=== PATIENT | male | born 1955 | race Caucasian/White ===

== ENCOUNTER 2017-02-24 10:31 | Emergency (ER) | payer OTHER ==
[2017-02-24 10:37] VITALS: BP 137/95
[2017-02-24] MEDS ORDERED: Lidocaine 2% PF * 5 ML VIAL INJ ONE (10:54)
--- NOTE | 2017-02-24 11:35 | UC ---
Laceration HPI - HPI Summary HPI Summary: [employer], WAS TRIMMING BRUSH WHEN BATTERY POWERED CHAINSAW BRUSHED LEFT LEG. LAST TETANUS THREE YEARS AGO. 2CM LACERATION TO POSTERIOR LEFT LEG. - History Of Current Complaint Chief Complaint: UCLaceration Stated Complaint: LEG LACERATION Time Seen by Provider: 02/24/17 10:44 Hx Obtained From: Patient Laceration Location: Calf - LEFT Mechanism Of Injury: Sharp Trauma Onset/Duration: Sudden Onset, Lasting Hours, Still Present Severity: Mild - Allergies/Home Medications Allergies/Adverse Reactions: Allergies Allergy/AdvReac Type Severity Reaction Status Date / Time No Known Allergies Allergy Verified 08/05/14 18:17 PMH/Surg Hx/FS Hx/Imm Hx Previously Healthy: Yes - Surgical History Surgical History: None - Family History Known Family History: Negative: Blood Disorder - Social History Occupation: Employed Full-time Lives: With Family Alcohol Use: Daily Substance Use Type: None Smoking Status (MU): Never Smoked Tobacco Review of Systems Constitutional: Negative Skin: Other - LACERATION LEFT LEG Eyes: Negative ENT: Negative Respiratory: Negative Cardiovascular: Negative Gastrointestinal: Negative Genitourinary: Negative Motor: Negative Neurovascular: Negative Musculoskeletal: Negative Neurological: Negative Psychological: Negative All Other Systems Reviewed And Are Negative: Yes Physical Exam Triage Information Reviewed: Yes Appearance: Well-Appearing, No Pain Distress, Well-Nourished Vital Signs: Initial Vital Signs Temp 98.3 F 02/24/17 10:34 Pulse 82 02/24/17 10:34 Resp 18 02/24/17 10:34 BP 137/95 02/24/17 10:34 Pulse Ox 100 02/24/17 10:34 Vital Signs Reviewed: Yes Eye Exam: Normal ENT Exam: Normal ENT: Positive: Normal ENT inspection, Hearing grossly normal, TMs normal Dental Exam: Normal Neck exam: Normal Respiratory Exam: Normal Respiratory: Positive: Chest non-tender, Lungs clear, Normal breath sounds, No respiratory distress Cardiovascular Exam: Normal Cardiovascular: Positive: RRR, No Murmur, Pulses Normal Abdominal Exam: Normal Musculoskeletal Exam: Normal Musculoskeletal: Positive: Strength Intact, ROM Intact Neurological Exam: Normal Psychological Exam: Normal Skin: Positive: Other - LACERATION LEFT CALF Laceration Repair - Laceration Repair 1 Description: Linear - 2 CM LEFT LEFT Modified For Repair: Yes Type Injection: Local Anesthesia Used: 2.0% Lido Cleansing Completed Via Routine Prep: Yes Irrigation With Pressure Irrigation Device: Yes Closure Material: Sutures - 3 X 4-0 PROLENE Suture Of: Skin, SQ Suture Type: Prolene Laceration Course/Dx - Differential Dx - Laceration/Wound Differental Diagnoses: Laceration Provider Diagnoses: LACERATION LEFT LEG Discharge - Discharge Plan Condition: Stable Disposition: HOME Patient Education Materials: Laceration (ED) Referrals: Allison Oakes MD [Primary Care Provider] - Additional Instructions: PLEASE HAVE SUTURES REMOVED IN TEN DAYS
== END 2017-02-24 11:35 | disposition home or self-care (01) ==
LOC: UCEAST 10:31
DX: S81.812A Laceration without foreign body, left lower leg, initial encounter (principal); W29.3XXA Contact with powered garden and outdoor hand tools and machinery, initial encounter; Y93.89 Activity, other specified; Y92.9 Unspecified place or not applicable; Y99.9 Unspecified external cause status
CPT/HCPCS: 12002; 12031; 99211; G0463

== ENCOUNTER 2017-03-06 11:48 | Emergency (ER) | payer OTHER ==
--- NOTE | 2017-03-06 12:24 | UC ---
HPI Wound/Suture Re-check - HPI Summary HPI Summary: 61 YEAR OLD PRESENTS WITH COMPLAINS OF LEFT LOWER LEG SUTURE REMOVAL - History Of Current Complaint Stated Complaint: SUTURE REMOVAL Time Seen by Provider: 03/06/17 12:22 Hx Obtained From: Patient Onset/Duration: Sudden Onset Severity: Mild Procedure Type: SUTURE REMOVAL - Allergies/Home Medications Allergies/Adverse Reactions: Allergies Allergy/AdvReac Type Severity Reaction Status Date / Time No Known Allergies Allergy Verified 03/06/17 12:38 PMH/Surg Hx/FS Hx/Imm Hx Previously Healthy: Yes - Surgical History Surgical History: None - Family History Known Family History: Negative: Blood Disorder - Social History Alcohol Use: Daily Substance Use Type: None Smoking Status (MU): Never Smoked Tobacco Review of Systems Constitutional: Negative Skin: Other - LEFT LOWER CALF SUTURE REMOVAL Eyes: Negative ENT: Negative Respiratory: Negative Cardiovascular: Negative Gastrointestinal: Negative Genitourinary: Negative Motor: Negative Neurovascular: Negative Musculoskeletal: Negative Neurological: Negative Psychological: Negative All Other Systems Reviewed And Are Negative: Yes Physical Exam Triage Information Reviewed: Yes Appearance: Well-Appearing Vital Signs Reviewed: Yes Eye Exam: Normal Eyes: Positive: Conjunctiva Clear ENT: Positive: Normal ENT inspection Dental Exam: Normal Neck exam: Normal Neck: Positive: Supple Respiratory Exam: Normal Cardiovascular Exam: Normal Skin Exam: Other - LEFT LOWER EXTREMITY STITCHES REMOVAL # 3, WOUND C//D/I, SLIGHT OOZING OF BLOOD Course/Dx - Course Course Of Treatment: LEFT LOWER CALF SUTURE REMOVAL - Differential Dx - Laceration/Wound Provider Diagnoses: LEFT CALF WOUND SUTURE REMOVAL # 3 Discharge - Discharge Plan Condition: Stable Disposition: HOME Prescriptions: Cephalexin CAP* [Keflex 500 CAP*] 500 mg PO TID #30 cap Patient Education Materials: Wound Infection (ED) Referrals: Allison Oakes MD [Primary Care Provider] - If Needed
[2017-03-06 12:45] VITALS: BP 120/87
== END 2017-03-06 13:24 | disposition home or self-care (01) ==
LOC: UCEAST 11:48
DX: Z48.02 Encounter for removal of sutures (principal)
CPT/HCPCS: 99212; G0463

== ENCOUNTER 2017-03-23 09:11 | Emergency (ER) | payer OTHER ==
[2017-03-23 09:38] VITALS: BP 126/95
--- NOTE | 2017-03-23 09:53 | UC ---
Skin Complaint HPI - HPI Summary HPI Summary: 61 y/o male presents to the urgent care for f/u in his left leg laceration. Pt reports the laceration was sutured here in 02/24/2017 and then removed in 2016, but he thinks is now infected since is red, swollen w/ yellowish discharge. Pt has denies fever, SOB, chest pain, N/V/D. Pt is concern since he is goidg out the country tomorrow for a business trip. Pt has not other complains. - History of Current Complaint Chief Complaint: UCSkin Time Seen by Provider: 03/23/17 09:32 Stated Complaint: SKIN Hx Obtained From: Patient Onset/Duration: Gradual Onset, Lasting Weeks, Still Present Skin Exposure Onset/Duration: Weeks Ago Timing: Constant Onset Severity: Mild Current Severity: Moderate Pain Intensity: 2 Pain Scale Used: 0-10 Numeric Location: Other - Left dorsal side of lower leg Character: Swelling, Pain, Redness, Raised Aggravating: Nothing Alleviating: Cold Associated Signs & Symptoms: Positive: Negative. Negative: Nausea, Vomiting, Numbness, Fever, Red Streaks Related History: Other: - Laceration - Allergy/Home Medications Allergies/Adverse Reactions: Allergies Allergy/AdvReac Type Severity Reaction Status Date / Time No Known Allergies Allergy Verified 03/23/17 09:27 Review of Systems Constitutional: Negative Skin: Rash - Wound lesion with redness in the back of lower leg s/p laceration Eyes: Negative ENT: Negative Respiratory: Negative Cardiovascular: Negative Gastrointestinal: Negative Genitourinary: Negative Motor: Negative Neurovascular: Negative Musculoskeletal: Negative Neurological: Negative Psychological: Negative All Other Systems Reviewed And Are Negative: Yes PMH/Surg Hx/FS Hx/Imm Hx Previously Healthy: Yes Cardiovascular History: Hypertension - Surgical History Surgical History: None - Family History Known Family History: Positive: None Negative: Blood Disorder - Social History Occupation: Employed Full-time Lives: With Family Alcohol Use: Daily Substance Use Type: None Smoking Status (MU): Never Smoked Tobacco - Immunization History Most Recent Influenza Vaccination: 2016 Most Recent Tetanus Shot: up to date Physical Exam Triage Information Reviewed: Yes Appearance: Well-Appearing, No Pain Distress, Well-Nourished, Thin Vital Signs: Initial Vital Signs Temp 97.8 F 03/23/17 09:25 Pulse 92 03/23/17 09:25 Resp 18 03/23/17 09:25 BP 126/95 03/23/17 09:25 Pulse Ox 98 03/23/17 09:25 Vital Signs Reviewed: Yes Eye Exam: Normal Eyes: Positive: Conjunctiva Clear - PERRLA, EOMI, fundi grossly normal ENT Exam: Normal ENT: Positive: Normal ENT inspection, Hearing grossly normal, Pharynx normal, TMs normal Dental Exam: Normal Neck exam: Normal Neck: Positive: Supple, Nontender, No Lymphadenopathy Respiratory Exam: Normal Respiratory: Positive: Chest non-tender, Lungs clear, Normal breath sounds Cardiovascular Exam: Normal Cardiovascular: Positive: RRR, No Murmur, Pulses Normal Abdominal Exam: Normal Abdomen Description: Positive: Nontender, No Organomegaly, Soft Bowel Sounds: Positive: Present Musculoskeletal Exam: Normal Musculoskeletal: Positive: Strength Intact, ROM Intact, No Edema Neurological Exam: Normal Psychological Exam: Normal Skin: Positive: significant lesion(s) - Left calf with erythematous linear closed laceration with mild crusting and purulent discharge. warm to touch, and mildly swollen. FROM, positive sensation, capillary refill and pulses intact. Course/Dx - Course Course Of Treatment: 61 y/o male presents to the urgent care for f/u in his left leg laceration. Pt reports the laceration was sutured here in 02/24/2017 and then removed in 03/06/2017, but he thinks is now infected since is red, swollen w/ yellowish discharge. Pt has denies fever, SOB, chest pain, N/V/D. Pt is concern since he is goidg out the country tomorrow for a business trip. Hx obtained. PE abnormal findings: Left calf with erythematous linear closed laceration with mild crusting and purulent discharge. warm to touch, and mildly swollen. FROM, positive sensation, capillary refill and pulses intact. Pt wound demarcated with a skin marker . Pt Rx Bactrim and Bacitracin topical cream and advised if symptoms do not improve or worsen and fever develops and redness increases despite ABX to go immediately to the ER for further treatment. Pt undestood and agreed and left the clinic ambulating. Uncontrolled HTN: Pt advised to decrease salt intake in diet and monitor BP and f/u with his PCP for further evaluation and treatment. Pt understood and agreed - Differential Diagnoses - Skin Complaint Differential Diagnoses: Allergic Reaction, Cellulitis, Eczema, Urticaria - Diagnoses Provider Diagnoses: 1- Cellulitis s/p wound laceration suture. 2- Uncontrolled HTN Discharge - Discharge Plan Condition: Stable Disposition: HOME Prescriptions: Bacitracin OINTMENT* 1 applic TOPICAL BID #1 tube Sulfamethox/Trimethoprim DS* [Bactrim DS 800/160 TAB*] 1 tab PO BID #10 tab Patient Education Materials: Cellulitis (ED), Acute Wound Care (ED), Low Sodium Diet (ED) Referrals: Allison Oakes MD [Primary Care Provider] - 1 Week Additional Instructions: Please take medications as instructed and finish the full course of treatment to avoid recurrent infection. Keep wound clean and dry, if signs of infection develops despite antibiotics please go immediately to the ER. Decrease salt in your diet and exercise, monitor your BP and follow up with your PCP for further evaluation and treatment on your HTN.
== END 2017-03-23 10:03 | disposition home or self-care (01) ==
LOC: UCEAST 09:11
DX: L03.116 Cellulitis of left lower limb (principal); I10 Essential (primary) hypertension
CPT/HCPCS: 99212; G0463

== ENCOUNTER 2017-04-17 16:12 | Emergency (ER) | payer OTHER ==
[2017-04-17 16:31] VITALS: BP 145/88
--- NOTE | 2017-04-17 16:43 | UC ---
Ear Complaint HPI - HPI Summary HPI Summary: 61 YEAR OLD MALE PRESENTS WITH COMPLAINS OF RIGHT EAR PAIN AFTER A TRANSCONTINENTAL FLIGHT. - History of Current Complaint Chief Complaint: UCEar Stated Complaint: EAR PAIN Time Seen by Provider: 04/17/17 16:23 - Allergies/Home Medications Allergies/Adverse Reactions: Allergies Allergy/AdvReac Type Severity Reaction Status Date / Time No Known Allergies Allergy Verified 04/17/17 16:31 PMH/Surg Hx/FS Hx/Imm Hx Previously Healthy: Yes - Surgical History Surgical History: None - Family History Known Family History: Positive: None Negative: Blood Disorder - Social History Alcohol Use: Daily Substance Use Type: None Smoking Status (MU): Never Smoked Tobacco - Immunization History Most Recent Influenza Vaccination: 2015 Most Recent Tetanus Shot: up to date Review of Systems Constitutional: Negative Skin: Negative Eyes: Negative ENT: Ear Ache Respiratory: Negative Cardiovascular: Negative Gastrointestinal: Negative Genitourinary: Negative Motor: Negative Neurovascular: Negative Musculoskeletal: Negative Neurological: Negative Psychological: Negative All Other Systems Reviewed And Are Negative: Yes Physical Exam Triage Information Reviewed: Yes Vital Signs: Initial Vital Signs Temp 36.1 C 04/17/17 16:28 Pulse 74 04/17/17 16:28 Resp 18 04/17/17 16:28 BP 145/88 04/17/17 16:28 Pulse Ox 100 04/17/17 16:28 Eye Exam: Normal ENT Exam: Normal ENT: Positive: Other: - MODERATE RIGHT MIDDLE EAR FLUID Dental Exam: Normal Neck exam: Normal Neck: Positive: 1 Respiratory Exam: Normal Cardiovascular Exam: Normal Abdominal Exam: Normal Musculoskeletal Exam: Normal Neurological Exam: Normal Psychological Exam: Normal Skin Exam: Normal Ear Complaint Course/Dx - Differential Dx/Diagnosis Provider Diagnoses: MODERATE RIGHT MIDDLE EAR FLUID Discharge - Discharge Plan Condition: Stable Disposition: HOME Prescriptions: Methylprednisolone [Medrol Dosepak 4 MG*] 4 mg PO .SEE BRADEN INSTRUCTION #21 tab Neomyc/Polym/HC 1% OTIC SUSP* [Cortisporin Otic Susp 1%*] 4 drop RIGHT EAR QID # 1 btl Pseudoephedrine HCl [Sudafed Nasal Decongestan] 30 mg PO Q8H PRN #30 tab PRN Reason: Congestion Patient Education Materials: Earache (ED) Referrals: Allison Oakes MD [Primary Care Provider] -
== END 2017-04-17 16:54 | disposition home or self-care (01) ==
LOC: UCEAST 16:12
DX: H93.8X1 Other specified disorders of right ear (principal); H92.01 Otalgia, right ear
CPT/HCPCS: 99212; G0463

== ENCOUNTER 2019-07-15 20:21 | Emergency (ER) | payer OTHER ==
--- OUTSIDE RECORDS SUMMARY | 2019-07-15 20:26 | XMS REPORT | Continuity of Care Document ---
:1955 External Reference #:[id number] Author Name Nurse Visit cc (transmitted by agent of provider Amanda Maloney) Address [address] [address] Care Team Providers Name Role Phone Emmanuel Cunningham MD - Neurology Care Team Information College President [phone] Walt Umaña MD - Advertising Assistant Manager Care Team Information College President [phone] Kvng Del Toro MD - Care Team Information College President [phone] Otolaryngology Isaiah Sarah MD - Cardiovascular Care Team Information College President [phone] Federica Oakes MD - Family Care Team Information College President [phone] Medicine Problems Active Problems Provider Date Atrial fibrillation Kyle Rucker, Onset: 08/23/2007 Ravindra,FACP Pure hypercholesterolemia Kyle Rucker, Onset: 08/23/2007 Ravindra,FACP Allergic asthma without status Kyle Rucker, Onset: 08/23/2007 asthmaticus Ravidnra,FACP Allergy Kyle Rucker, Onset: 08/23/2007 Ravindra,FACP Gastroesophageal reflux disease Kyle Rucker, Onset: 08/23/2007 Ravindra,KIRBYP Chronic peptic ulcer with hemorrhage AND Kyle Rucker, Onset: 10/16/2008 with perforation but without obstruction Ravindra,FACP Mixed hyperlipidemia Kyle Rucker, Onset: 09/10/2009 Ravindra,FACP Benign essential hypertension Kyle Rucker, Onset: 12/27/2010 ANALI Waite Gout Kyle Rucker, Onset: 12/27/2010 ANALI Waite Essential hypertension SEBASTIEN Lopes Onset: 06/28/2015 Social History Type Date Description Comments Sex Unknown Tobacco Use Start: Unknown Former Cigarette Smoker Pt denies smoking End: Unknown pipe, cigar, e-cigarettes, or using chewing tobacco. ETOH Use Consumes 1 glass of wine per day Tobacco Use Start: Unknown Patient is a former End: Unknown smoker Recreational Drug Use Denies Drug Use Smoking Status Reviewed: 03/22/19 Patient is a former smoker Exercise Type/Frequency Exercises sporadically uses elliptical machine, and weight machine for about 40 minutes per workout, about 2 x per week Allergies, Adverse Reactions, Alerts Active Allergies Reaction Severity Comments Date NKDA 06/30/2005 Animal Dander 03/22/2019 Dust 03/22/2019 Pollen 03/22/2019 Mildew 03/22/2019 Medications Active Medications SIG Qnty Indications Ordering Provider Date Lisinopril 1 by mouth every 30tabs I10 Dana Moseley NP 05/20/2019 30mg Tablets day Wixela Inhub Inhale 1 puff By Unknown 03/18/2019 Mouth Twice 250-50mcg/Dose Daily Aerosol Aspirin Low Strength take 1 tablet by 90units I48.0 Dana Moseley NP mouth daily 81mg Chewtabs Nebulizer twice daily as Isaiah Riley 10/26/2018 needed Ravindra Sarah Rosuvastatin Calcium take 1 tablet by 90tabs E78.00 Isaiah Riley 10/26/2018 mouth every Ravindra Sarah 10mg Tablets evening Metoprolol Tartrate 1 po qd Isaiah Riley 09/17/2014 Ravindra Sarah 50mg Tablets Cartia XT Take One Capsule 30caps Kyle Barker 04/12/2011 120mg Caps ER By Mouth One Ravindra Rucker,FACP 24HR Time Daily Lansoprazole Take One Capsule 30caps Kyle Barker 02/26/2011 30mg By Mouth Daily Ravindra Rucker,FACP Capsules DR Allopurinol 1 po qd 30tabs 274.9 Kyle Barker 01/23/2010 300mg Ravindra Rucker,FACP Tablets Proventil HFA 2 puffs po qid 1Mon Kyle Barker 10/16/2008 prn Ravindra Rucker,FACP 108mcg/Act Aerosol Krill Oil once daily Unknown 1000mg Capsules Zyrtec Allergy take one tablet Unknown 10mg by mouth in the Capsules evening (in Spring/fall) History Medications Advair Diskus 1 puff twice a 60units Dana Moseley, 12/24/2018 - 250-50mcg/Dose day as needed [employer] 05/19/2019 Aerosol Immunizations CPT Code Status Date Vaccine Lot # [id number] Given 08/02/2010 Influenza Virus 3Yrs & Over 13709 Given 09/10/2009 Influenza Virus 3Yrs & Over [id number] 96402 Given 07/27/2009 Influenza Virus Vaccine, Pandemic Formulation [id number] 84686 Given 07/27/2009 Administration Swine Flu Shot 91399 Given 08/02/2008 Influenza Virus 3Yrs & Over [id number] 27395 Given 02/25/2008 Hepatitis A Vaccine Adult Dosage [id number] 06766 Given 08/23/2007 Influenza Virus 3Yrs & Over 64176 Given 08/23/2007 Influenza Virus 3Yrs & Over Vital Signs Date Vital Result Comment 06/06/2019 8:45am Height 62 inches 5'2" Weight 146.25 lb Heart Rate 82 /min right radial regular BP Systolic Sitting 140 mmHg ule reg cuff BP Diastolic Sitting 86 mmHg ule reg cuff BP Systolic Standing 136 mmHg ule reg cuff BP Diastolic Standing 84 mmHg ule reg cuff BMI (Body Mass Index) 26.7 kg/m2 05/20/2019 10:28am Height 62 inches 5'2" Heart Rate 77 /min radial, irregular BP Systolic Sitting 138 mmHg Ra, reg cuff BP Diastolic Sitting 82 mmHg Ra, reg cuff BP Systolic Standing 142 mmHg LA sitting, reg cuff BP Diastolic Standing 82 mmHg LA sitting, reg cuff BP Systolic Lying Down 140 mmHg Ra sitting, home cuff BP Diastolic Lying Down 98 mmHg Ra sitting, home cuff BP Systolic Recheck 150 mmHg LA sitting, home cuff BP Diastolic Recheck 81 mmHg LA sitting, home cuff Results Test Date Facility Test Result H/L Range Note CBC Auto 12/15/2018 [facility] White Blood 5.0 10^3/uL Normal 3.5-10.[address] [place] [address] [phone] Red Blood Count 5.25 10^6/uL Normal 4.18-5.48 Hemoglobin 16.1 g/dL Normal 14.0-18.0 Hematocrit 48 % High 36-46 Mean Corpuscular Volume 91 fL Normal 80-94 Mean Corpuscular Hemoglobin 31 pg Normal 27-31 Mean Corpuscular HGB Conc 34 g/dL Normal 31-36 Red Cell Distribution Width 14 % Normal 10.5-15 Platelet Count 177 10^3/uL Normal 150-450 Mean Platelet Volume 8.7 fL Normal 7.4-10.4 Abs Neutrophils 2.8 10^3/uL Normal 1.5-7.7 Abs Lymphocytes 1.4 10^3/uL Normal 1.0-4.8 Abs Monocytes 0.4 10^3/uL Normal 0-0.8 Abs Eosinophils 0.4 10^3/uL Normal 0-0.6 Abs Basophils 0 10^3/uL Normal 0-0.2 Abs Nucleated RBC 0 10^3/uL Granulocyte % 56.6 % Lymphocyte % 27.2 % Monocyte % 7.5 % Eosinophil % 8.1 % Basophil % 0.6 % Nucleated Red Blood Cells % 0.1 Laboratory test 12/15/2018 [facility] B-Type 136 pg/mL High <= 100 [address] [place] [address] Peptide BNP [phone] Lipid Panel - 12/15/2018 [facility] Creatine 134 U/L Normal 10 -223 [address] Kinase(CK) [place], [place] [id number] [phone] Comp Metabolic 12/15/2018 [facility] Sodium 140 Normal 135- [address] mmol/[place] [address] [phone] Potassium 4.3 mmol/L Normal 3.5-5.0 Chloride 104 mmol/L Normal 101-111 Co2 Carbon Dioxide 33 mmol/L High 22-32 Anion Gap 3 mmol/L Normal 2-11 Glucose 97 mg/dL Normal 70-100 Blood Urea Nitrogen 20 mg/dL Normal 6-24 Creatinine 1.05 mg/dL Normal 0.67-1.17 BUN/Creatinine Ratio 19.0 Normal 8-20 Calcium 9.3 mg/dL Normal 8.6-10.3 Total Protein 6.7 g/dL Normal 6.4-8.9 Albumin 4.4 g/dL Normal 3.2-5.2 Globulin 2.3 g/dL Normal 2-4 Albumin/Globulin Ratio 1.9 Normal 1-3 Total Bilirubin 0.60 mg/dL Normal 0.2-1.0 Alkaline Phosphatase 69 U/L Normal 34-104 Alt 32 U/L Normal 7-52 Ast 31 U/L Normal 13-39 Egfr Non- 70.9 >60 Egfr 85.8 >60 3 Lipid Profile 12/15/2018 [facility] Triglycerides 111 mg/dL 4 (Trig/Chol/HDL) [address] [place] [address] [phone] Cholesterol 140 mg/dL 5 HDL Cholesterol 46.7 mg/dL 6 LDL Cholesterol 71 mg/dL 7 Laboratory test 12/15/2018 [facility] Hemoglobin A1c 5.6 % Normal 4.0-5.6 [address] (Glyco HGB) [place] [address] [phone] 1 FASTING in 1 m Copy Result to: FEDERICA OAKES ([id number]) 2 FASTING in 1 m Copy Result to: [place] O[place]ES ([id number]) 3 Because ethnic data is not always readily available, this report includes an eGFR for both -Americans and non- Americans. The National Kidney Disease Education Program (NKDEP) does not endorse the use of the MDRD equation for patients that are not between the ages of 18 and 70, are , have extremes of body size, muscle mass, or nutritional status, or are non- or non-. According to the National Kidney Foundation, irrespective of diagnosis, the stage of the disease is based on the level of kidney function: Stage Description GFR(mL/min/1.73 m(2)) 1 Kidney damage with normal or decreased GFR 90 2 Kidney damage with mild decrease in GFR 60-89 3 Moderate decrease in GFR 30-59 4 Severe decrease in GFR 15-29 5 Kidney failure <15 (or dialysis) 4 Desirable: <150 Borderline High: 150-199 High: 200-499 Very High: >500 5 Desirable: <200 Borderline High: 200-239 High: >239 6 Low: <40 Desirable: 40-60 High: >60 7 Desirable: <100 Near Optimal: 100-129 Borderline High: 130-159 High: 160-189 Very High: >189 8 Therapeutic target for the treatment of diabetes mellitus patients is <7% HBA1C, and in selective patients <6.0%. Please refer to [place] [employer] diabetic care guidelines for further information. Procedures Date Code Description Status 03/24/2019 91232 Holter Monitor Review (24 hr)dr review & interp only Completed 03/17/2019 01786893 Colonoscopy Completed 03/14/2019 41428 ECG Monitor/Recording W/Visual Superimposition Scanning Completed 02/17/2019 27127 EKG Tracing & Interpretation Completed 02/09/2019 38915 ECHO Stress Test Incl Perf Contiuous ekg Monitoring Completed W/Phys Superv 12/25/2008 37228838 Colonoscopy Completed Medical Devices Description No Information Available Encounters Type Date Location Provider Dx Diagnosis Office Visit 05/20/2019 [facility] Nurse Visit I10 Essential ( primary) 10:00a hypertension [facility], I48.0 Paroxysmal atrial 2:00p [facility] [employer] fibrillation I10 Essential (primary) hypertension E78.5 Hyperlipidemia, unspecified [facility] Essential (primary[facility] [employer] hypertension I48.0 Paroxysmal atrial fibrillation E78.5 Hyperlipidemia, unspecified Office Visit 12/24/2018 1:[facility]p [facility], I10 Essential (primary) [facility] [employer] hypertension I48.2 Chronic atrial fibrillation R06.00 Dyspnea, unspecified Assessments Date Code Description Provider 06/06/2019 I10 Essential (primary) hypertension Nurse Visit 05/20/2019 I10 Essential (primary) hypertension Nurse Visit 03/24/2019 I48.2 Chronic atrial fibrillation Isaiah Sarah M.D. 03/22/2019 I48.0 Paroxysmal atrial fibrillation Dana Thwilmer, [employer] 03/22/2019 I10 Essential (primary) hypertension Dana Moseley, CHANO 03/22/2019 E78.5 Hyperlipidemia, unspecified Dana Moseley, [employer] 03/14/2019 I48.2 Chronic atrial fibrillation Nurse Visit 03/14/2019 I49.3 Ventricular premature depolarization Nurse Visit IC 03/14/2019 I48.91 Unspecified atrial fibrillation Nurse Visit IC 02/17/2019 I48.0 Paroxysmal atrial fibrillation Isaiah Sarah M.D. 02/17/2019 I10 Essential (primary) hypertension Dana Thuman, [employer] 02/17/2019 I48.0 Paroxysmal atrial fibrillation Dana Thuman, [employer] 02/17/2019 E78.5 Hyperlipidemia, unspecified Dana Thuman, [employer] 02/09/2019 I10 Essential (primary) hypertension Isaiah Sarah M.D. 02/09/2019 I48.2 Chronic atrial fibrillation Isaiah Sarah M.D. 02/09/2019 R06.00 Dyspnea, unspecified Isaiah Sarah M.D. 12/24/2018 I10 Essential (primary) hypertension Dana Thuman, [employer] 12/24/2018 I48.2 Chronic atrial fibrillation Dana Thuman, [employer] 12/24/2018 R06.00 Dyspnea, unspecified Dana Moseley, [employer] Plan of Treatment Future Appointment(s):08/10/2019 11:00 am - Isaiah Sarah M.D. at [facility]06/06/2019 - Nurse Visit ccI10 Essential (primary) hypertension Functional Status Description No Information Available Mental Status Description No Information Available Referrals Description No Information Available
--- OUTSIDE RECORDS SUMMARY | 2019-07-15 20:26 | XMS REPORT | Continuity of Care Document ---
:1955 External Reference #:[id number] Author Name Shraddha Hubbard MD Address [address] [place] [address] Problems Active Problems Provider Date Tubular adenoma of colon Onset: 03/18/2019 Chronic kidney disease Onset: 01/09/2018 Essential hypertension Onset: 12/04/2015 Metabolic syndrome X Onset: 06/12/2015 Social History Type Date Description Comments Sex Unknown Allergies, Adverse Reactions, Alerts Description No Information Available Medications Active Medications SIG Qnty Indications Ordering Date Provider Furosemide 1 every day by 30tabs I10 Shraddha Hbubard, 06/10/2019 20mg Tablets mouth Lisinopril 1 daily Oral Unknown 02/17/2019 20mg Tablets Rosuvastatin Calcium 1 daily Oral 90tabs Unknown 10/28/2018 10mg Tablets Metoprolol Succinate Oral; Take 1 90tabs Unknown 08/13/2018 ER Tablet By Mouth 50mg Tablets ER 24HR Every Day Pantoprazole Sodium Oral; Take 1 90tabs Unknown 11/01/2017 Tablet By Mouth 40mg Tablets DR Once Daily Betamethasone apply twice daily 60units Unknown 07/01/2017 Valerate External 0.1% Cream Advair Diskus 1 twice each day 60units Unknown 12/12/2016 Inhalation 250-50mcg/Dose Aerosol Ventolin HFA Inhalation; Take 18units Unknown 12/12/2016 Two Puffs Every 108(90Base) mcg/Act Four To Six Hours Aerosol as Necessary For Shortness Of Breath Diltiazem HCL ER Oral; Take One 90caps Unknown 12/12/2016 Coated Beads Capsule By Mouth 120mg Caps Once Daily ER 24HR Allopurinol Oral; Take 1 90tabs Unknown 12/12/2016 300mg Tablet By Mouth Tablets Every Day Aspirin Ec 1 daily Oral 30tabs Unknown 04/04/[address] Immunizations CPT Code Status Date Vaccine Lot # [id number] Given 09/21/2018 Prevnar 13 25090 Given 06/17/2018 Shingrix - Shingles vaccine, Herpes Zoster 88088 Given 06/17/2018 Flu High Dose 29992 Given 04/13/2018 Shingrix - Shingles vaccine, Herpes Zoster 46529 Given 01/05/2018 Shingrix - Shingles vaccine, Herpes Zoster 82319 Given 05/08/2017 Flu High Dose 05216 Given 05/16/2016 Flu < 65 years 10720 Given 12/10/2015 Pneumovax - for >=2years - PPSV23 02000 Given 06/12/2015 Flu < 65 years 92402 Given 07/17/2014 Flu < 65 years 99528 Given 05/04/2013 Zoster Shingles Vaccine For Subcutaneous Injection 27124 Given 05/04/2013 Tdap - Boostrix/Adacel 20471 Given 05/04/2013 Flu < 65 years 66663 Given 06/13/2011 Influenza Virus Vaccine, Quadrivalent, Split, Im Use 0.25ML Vital Signs Date Vital Result Comment 06/10/2019 3:30pm BP Systolic 156 mmHg BP Diastolic 80 mmHg Height 63.5 inches 5'3.50" Weight 165.00 lb Heart Rate 71 /min Body Temperature 96.8 F O2 % BldC Oximetry 98 % BMI (Body Mass Index) 28.8 kg/m2 09/21/2018 8:44am Heart Rate 80 /min Results Test Date Facility Test Result H/L Range Note Laboratory test 06/14/2019 [facility] Surgical SEE RESULT [address] [place] [address] Order [phone] Laboratory test 06/14/2019 [facility] Clotest SEE RESULT [address] [place] [address] [phone] Comp Metabolic 06/08/2019 [facility] Sodium 139 mmol/L Normal 135-145 [address] [place] [address] [phone] Chloride 103 mmol/L Normal 101-111 Co2 Carbon Dioxide 32 mmol/L Normal 22-32 Glucose 91 mg/dL Normal 70-100 Blood Urea Nitrogen 17 mg/dL Normal 6-24 Creatinine 1.25 mg/dL High 0.67-1.17 BUN/Creatinine Ratio 13.6 Normal 8-20 Calcium 9.8 mg/dL Normal 8.6-10.3 Total Protein 6.4 g/dL Normal 6.4-8.9 Albumin 4.4 g/dL Normal 3.2-5.2 Globulin 2.0 g/dL Normal 2-4 Albumin/Globulin Ratio 2.2 Normal 1-3 Total Bilirubin 0.60 mg/dL Normal 0.2-1.0 Alkaline Phosphatase 58 U/L Normal 34-104 Alt 26 U/L Normal 7-52 Ast 27 U/L Normal 13-39 Egfr Non- 57.8 >60 Egfr 69.9 >60 4 Potassium 5.3 mmol/L High 3.5-5.0 Anion Gap 4 mmol/L Normal 2-11 Laboratory test 06/08/2019 [facility] Hemoglobin A1c 5.8 % High 4.0-5.6 [address] (Glyco HGB) [place] [address] [phone] Lipid Profile 06/08/2019 [facility] Triglycerides 125 6 (Trig/Chol/HDL) [address] mg/[place] [address] [phone] Cholesterol 154 mg/dL 7 HDL Cholesterol 51.6 mg/dL 8 LDL Cholesterol 77 mg/dL 9 Laboratory test 06/08/2019 [facility] Uric Acid 4.2 mg/dL Low 4.4-7.6 [address] [place] [address] [phone] BUN 05/03/2019 N2N/CCD Import BUN 28 mg/dL High 6-24 mg/dL Creatinine 05/03/2019 N2N/CCD Import Creatinine 1.26 mg/dL High 0.67- 1.17 mg/dL GFR Afr Amer 05/03/2019 N2N/CCD Import GFR Afr Amer 69.3 _ >60 GFR Non Afr 05/03/2019 N2N/CCD Import GFR Non Afr 57.3 _ >60 Amer Amer Colonoscopy 03/17/2019 N2N/CCD Import Colonoscopy adenoma 1 SEE RESULT BELOW Name: REGINO KNOWLES : [address]: Amrit Ochoa DO Acct: [id number] Unit: [id number] AGE: 64 Location: ENDO Re06/14/19 SEX: M Status: DEP REF SPEC: [id number] OLVIN: 06/14/19 DR: Amrit Ochoa DO REQ: [id number] RECD: 06/14/19 STATUS: KENNETH JONES DR: Shraddha Hubbard MD _ ORDERED: LEVEL 4/3, IMMUNO-FIRST ADDENDUM Addendum: An immunohistochemical stain for Helicobacter pylori-like organisms was performed with appropriate controls on part 2 and is negative. Addendum Signed (signature on file) Shon Berumen MD 1407 FINAL DIAGNOSIS 1. Stomach, body, biopsy: -- Body-type gastric mucosa with minimal superficial chronic gastritis. -- No evidence of Helicobacter organisms. 2. Stomach, antrum, biopsy: -- Antral and body-type gastric mucosa with moderate chronic gastritis; see comment. 3. Esophagus, distal, biopsy: -- Benign squamous and columnar-type mucosa with chronic inflammation. -- Intestinal metaplasia is absent. -- Dysplasia is absent. COMMENT: An H. pylori immunohistochemical stain is pending for specimen 2 and the results will be reported in an addendum. CLINICAL HISTORY Gastroesophageal reflux disease CONTINUED ON NEXT PAGE DEPARTMENT OF PATHOLOGY, [address] [place] [address] Shon Berumen M.D. Director [facility] # [id number] PRE-OPERATIVE DIAGNOSIS 1) Rule out metaplasia; 2) rule out gastritis; 3) rule out Gibson???s POST-OPERATIVE DIAGNOSIS EGD: esophagus ??? possible COM 1 Gibson???s biopsy; gastric ??? gastritis biopsy body and antrum; rule out metaplasia; duodenum - normal GROSS DESCRIPTION 1. The specimen is received in formalin labeled, Biopsy Gastric Body, and consists of two conway irregular soft tissue fragments measuring 0.2 x 0.2 x 0.2 cm and 0.5 by up to 0.3 x 0.2 cm which are submitted entirely in one cassette. 2. The specimen is received in formalin labeled, Biopsy Gastric Antrum, and consists of a 0.4 x 0.3 by up to 0.2 cm conway irregular soft tissue fragment which is submitted entirely in one cassette. 3. The specimen is received in formalin labeled, Biopsy Distal Esophagus, and consists of two conway-white to red irregular soft tissue fragments averaging 0.3 x 0.2 x 0.1 cm which are submitted entirely in one cassette. Signed by and Reported on: Rosalee Santoyo MD 06/15/19 1204 END OF REPORT DEPARTMENT OF PATHOLOGY, [facility] [employer] [place], [place] [address] Shon Berumen M.D. Director [facility] # [id number] 2 SEE RESULT BELOW Name: REGINO KNOWLES : [address]: Amrit Ochoa DO Acct: [id number] Unit: [id number] AGE: 64 Location: ENDO Re06/14/19 SEX: M Status: REG REF SPEC: [id number] OLVIN: 06/14/[address]: Amrit Ochoa DO REQ: [id number] RECD: 06/14/19 STATUS: URI JONES DR: Shraddha Hubbard MD _ SOURCE: GAS ANTRUM SPDESC: ORDERED: Clotest Procedure Result Reported Site Clotest Final 06/15/19722 ML Clotest Negative * ML - Main Lab . END OF REPORT DEPARTMENT OF PATHOLOGY, [address] [place] [address] Shon Berumen M.D. Director [facility] # [id number] 3 FASTING 4 Because ethnic data is not always readily [...] 15-29 5 Kidney failure <15 (or dialysis) 5 Therapeutic target for the treatment of diabetes mellitus patients is <7% HBA1C, and in selective patients <6.0%. Please refer to [place] [employer] diabetic care guidelines for further information. 6 Desirable: <150 Borderline High: 150-199 High: 200-499 Very High: >500 7 Desirable: <200 Borderline High: 200-239 High: >239 8 Low: <40 Desirable: 40-60 High: >60 9 Desirable: <100 Near Optimal: 100-129 Borderline High: 130-159 High: 160-189 Very High: >189 10 FASTING Procedures Description No Information Available Medical Devices Description No Information Available Encounters Type Date Location Provider Dx Diagnosis Office Visit 06/10/2019 [facility] Main Shraddha Hubbard MD I10 Essential (primary ) 3:30p hypertension R73.03 Prediabetes Z68.28 Body mass index (BMI) 28.0-28.9, adult Assessments Date Code Description Provider 06/10/2019 I10 Essential (primary) hypertension Shraddha Hubbard MD 06/10/2019 R73.03 Prediabetes Shraddha Hubbard MD 06/10/2019 Z68.28 Body mass index (BMI) 28.0-28.9, adult Shraddha Hubbard MD Plan of Treatment 06/10/2019 - Shraddha Hubbard MDI10 Essential (primary) hypertensionNew Medication:Furosemide 20 mg - 1 every day by mouthNew Labs:Basic Metabolic Panel, Ordered: 06/10/19R73.03 DjxpbemdeseG56.28 Body mass index (BMI) 28.0-28.9 , adult Functional Status Description No Information Available Mental Status Description No Information Available Referrals Description No Information Available
--- OUTSIDE RECORDS SUMMARY | 2019-07-15 20:26 | XMS REPORT | Continuity of Care Document ---
:1955 External Reference #:[id number] Author Name Dana Moseley NP (transmitted by agent of provider Katya Naranjo) Address [address] [address] Care Team Providers Name Role Phone Emmanuel Cunningham MD - Neurology Care Team Information Foreign Car Mechanic [phone] Walt Umaña MD - Cyber Special Agent Care Team Information Foreign Car Mechanic Kvng Del Toro MD - Care Team Information Foreign Car Mechanic [phone] Otolaryngology sIaiah Sarah MD - Cardiovascular Care Team Information Foreign Car Mechanic Disease Allison Oakes MD - Family Care Team Information Foreign Car Mechanic Medicine Problems Active Problems Provider Date Atrial fibrillation Kyle Rucker, Onset: 08/23/2007 Ravindra,FACP Pure hypercholesterolemia Kyle Rucker, Onset: 08/23/2007 Ravindra,FACP Allergic asthma without status Kyle Rucker, Onset: 08/23/2007 asthmaticus Ravindra,FACP Allergy Kyle Rucker, Onset: 08/23/2007 Ravindra,FACP Gastroesophageal reflux disease Kyle Rucker, Onset: 08/23/2007 Ravindra,KIRBYP Chronic peptic ulcer with hemorrhage AND Kyle Rucker, Onset: 10/16/2008 with perforation but without obstruction Ravindra,FACP Mixed hyperlipidemia Kyle Rucker, Onset: 09/10/2009 Ravindra,FACP Benign essential hypertension Kyle Rucker, Onset: 12/27/2010 Ravindra,KIRBYP Gout Kyle Rucker, Onset: 12/27/2010 Ravindra,ANALI Essential hypertension SEBASTIEN Lopes Onset: 06/28/2015 Social History Type Date Description Comments Sex Unknown Tobacco Use Start: Unknown Former Cigarette Smoker Pt denies smoking End: Unknown pipe, cigar, e-cigarettes, or using chewing tobacco. ETOH Use Consumes 1 glass of wine per day Tobacco Use Start: Unknown Patient is a former End: Unknown smoker Recreational Drug Use Denies Drug Use Smoking Status Reviewed: 07/07/19 Patient is a former smoker Exercise Type/Frequency Exercises sporadically uses elliptical machine, and weight machine for about 40 minutes per workout, about 2 x per week Allergies, Adverse Reactions, Alerts Active Allergies Reaction Severity Comments Date NKDA 06/30/2005 Animal Dander 03/22/2019 Dust 03/22/2019 Pollen 03/22/2019 Mildew 03/22/2019 Medications Active Medications SIG Qnty Indications Ordering Provider Date Amlodipine Besylate 1 by mouth every 90tabs Dana Moseley NP 07/07/2019 5mg day (short term Tablets given in [facility]) Amlodipine Besylate 1 by mouth daily 90tabs I10 Dana Moseley NP 2018 5mg Tablets Lisinopril 1 by mouth every 30tabs I10 Dana Moseley NP 06/06/2019 40mg Tablets day Wixela Inhub Inhale 1 puff [...] 30mg By Mouth Daily Ravindra Rucker,FACP Capsules Allopurinol 1 po qd 30tabs 274.9 Kyle Barker 01/23/2010 300mg Ravindra Rucker,FACP Tablets Proventil HFA 2 puffs po qid 1Mon Kyle Barker 10/16/2008 prn Ravindra Rucker,FACP 108mcg/Act Aerosol Krill Oil once daily Unknown 1000mg Capsules Zyrtec Allergy take one tablet Unknown 10mg by mouth in the Capsules evening (in Spring/fall) History Medications Lisinopril 1 by mouth every 30tabs I10 Dana Moseley NP 05/20/2019 - 30mg Tablets day 06/06/2019 Immunizations CPT Code Status Date Vaccine Lot # [id number] Given 08/02/2010 Influenza Virus 3Yrs & Over 25443 Given 09/10/2009 Influenza Virus 3Yrs & Over [id number] 69782 Given 07/27/2009 Influenza Virus Vaccine, Pandemic Formulation [id number] 21004 Given 07/27/2009 Administration Swine Flu Shot 85738 Given 08/02/2008 Influenza Virus 3Yrs & Over 36359 86546 Given 02/25/2008 Hepatitis A Vaccine Adult Dosage [id number] 46217 Given 08/23/2007 Influenza Virus 3Yrs & Over 80426 Given 08/23/2007 Influenza Virus 3Yrs & Over Vital Signs Date Vital Result Comment 07/07/2019 1:02pm Height 62 inches 5'2" Weight 146.00 lb with shoes Heart Rate 92 /min right radial irregular BP Systolic Sitting 120 mmHg ule reg cuff BP Diastolic Sitting 82 mmHg ule reg cuff BMI (Body Mass Index) 26.7 kg/m2 Ejection Fraction REF: 55-6% Stress 55-60% 06/06/2019 8:45am Height 62 inches 5'2" Weight 146.25 lb Heart Rate 82 /min right radial regular BP Systolic Sitting 140 mmHg ule reg cuff BP Diastolic Sitting 86 mmHg ule reg cuff BP Systolic Standing 136 mmHg ule reg cuff BP Diastolic Standing 84 mmHg ule reg cuff BMI (Body Mass Index) 26.7 kg/m2 Results Description No Information Available Procedures Date Code Description Status 03/24/2019 31749 Holter Monitor Review (24 hr)dr review & interp only Completed 03/17/2019 83822287 Colonoscopy Completed 03/14/2019 71471 ECG Monitor/Recording W/Visual Superimposition Scanning Completed 02/17/2019 85896 EKG Tracing & Interpretation Completed 02/09/2019 78578 ECHO Stress Test Incl Perf Contiuous ekg Monitoring Completed W/Phys Superv 12/25/2008 83422233 Colonoscopy Completed Medical Devices Description No Information Available Encounters Type Date Location Provider Dx Diagnosis Office Visit 06/06/2019 [facility] Nurse Visit I10 Essential ( primary) 8:30a hypertension Office Visit 05/20/2019 [facility] Nurse Visit I10 Essential ( primary) 10:00a hypertension Office Visit 03/22/2019 [facility] Dana Thuman, I48.0 Paroxysmal atrial 2: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 I10 Essential (primary) hypertension E78.5 Hyperlipidemia, unspecified Office Visit 02/17/2019 1:30p [facility] Dana Thuman, I10 Essential (primary) [employer]CH [employer] hypertension I48.0 Paroxysmal atrial fibrillation E78.5 Hyperlipidemia, unspecified Assessments Date Code Description Provider 07/07/2019 I10 Essential (primary) hypertension Dana Thuman, TORCH SOLDERER 07/07/2019 I48.91 Unspecified atrial fibrillation Dana Thuman, TORCH SOLDERER 06/06/2019 I10 Essential (primary) hypertension Nurse Visit 05/20/2019 I10 Essential (primary) hypertension Nurse Visit 03/24/2019 I48.2 Chronic atrial fibrillation Isaiah Sarah M.D. 03/22/2019 I48.0 Paroxysmal atrial fibrillation Dana Thuman, TORCH SOLDERER 03/22/2019 I10 Essential (primary) hypertension Dana Thuman, TORCH SOLDERER 03/22/2019 E78.5 Hyperlipidemia, unspecified Dana Thuman, TORCH SOLDERER 03/14/2019 I48.2 Chronic atrial fibrillation Nurse Visit 03/14/2019 I49.3 Ventricular premature depolarization Nurse Visit 03/14/2019 I48.91 Unspecified atrial fibrillation Nurse Visit 02/17/2019 I48.0 Paroxysmal atrial fibrillation Isaiah Sarah M.D. 02/17/2019 I10 Essential (primary) hypertension Dana Thwilmer, TORCH SOLDERER 02/17/2019 I48.0 Paroxysmal atrial fibrillation Dana Moseley NP 02/17/2019 E78.5 Hyperlipidemia, unspecified Dana Moseley NP 02/09/2019 I10 Essential (primary) hypertension Isaiah Sarha M.D. 02/09/2019 I48.2 Chronic atrial fibrillation Isaiah Sarah M.D. 02/09/2019 R06.00 Dyspnea, unspecified Isaiah Sarah M.D. Plan of Treatment Future Appointment(s):08/03/2019 2:30 pm - Isaiah Sarah M.D. at [facility]07/22/2019 2:30 pm - Dana Moseley NP at [facility]2018 - Dana Moseley NPI10 Essential (primary) hypertensionNew Medication: Amlodipine Besylate 5 mg - 1 by mouth bdbdsX21.91 Unspecified atrial fibrillationFollow up:follow up in two weeks with ri Dana Moseley SUPERVISOR [employer]YING [employer] WINDING- BCRecommendations:Please drop off your brain MRI report so it can be interpreted. Increase ASA to 325mg by mouth daily Functional Status Description No Information Available Mental Status Description No Information Available Referrals Description No Information Available
--- OUTSIDE RECORDS SUMMARY | 2019-07-15 20:26 | XMS REPORT | Continuity of Care Document ---
:1955 External Reference #:[id number] Author Name Yovana Hubbard MD Address [address] [place] [address] Problems Active Problems Provider Date Tubular adenoma of colon Onset: 03/18/2019 Chronic kidney disease Onset: 01/09/2018 Essential hypertension Onset: 12/04/2015 Metabolic syndrome X Onset: 06/12/2015 Social History Type Date Description Comments Sex Unknown Allergies, Adverse Reactions, Alerts Description No Information Available Medications Active Medications SIG Qnty Indications Ordering Date Provider Furosemide 1 every day by 30tabs I10 Yovana Hubbard, 06/10/2019 20mg Tablets mouth Lisinopril 1 daily [...] CPT Code Status Date Vaccine Lot # [id number] Given 09/21/2018 Prevnar 13 87505 Given 06/17/2018 Shingrix - Shingles vaccine, Herpes Zoster 20267 Given 06/17/2018 Flu High Dose 40788 Given 04/13/2018 Shingrix - Shingles vaccine, Herpes Zoster 41518 Given 01/05/2018 Shingrix - Shingles vaccine, Herpes Zoster 64973 Given 05/08/2017 Flu High Dose 57771 Given 05/16/2016 Flu < 65 years 71127 Given 12/10/2015 Pneumovax - for >=2years - PPSV23 00043 Given 06/12/2015 Flu < 65 years 58456 Given 07/17/2014 Flu < 65 years 79099 Given 05/04/2013 Zoster Shingles Vaccine For Subcutaneous Injection 85286 Given 05/04/2013 Tdap - Boostrix/Adacel 52745 Given 05/04/2013 Flu < 65 years 29575 Given 06/13/2011 Influenza Virus Vaccine, Quadrivalent, Split, [...] Date Facility Test Result H/L Range Note Comp Metabolic 06/08/2019 [facility] Sodium 139 mmol/L Normal 135-145 [address] [place] [address] [phone] Chloride 103 mmol/L Normal 101-111 Co2 Carbon [...] Egfr Non- 57.8 >60 Egfr 69.9 >60 2 Potassium 5.3 mmol/L High 3.5-5.0 Anion Gap 4 mmol/L Normal 2-11 Laboratory test 06/08/2019 [facility] Hemoglobin A1c 5.8 % High 4.0-5.[address] (Glyco HGB) [place] [address] [phone] Lipid Profile 06/08/2019 [facility] Triglycerides 125 4 (Trig/Chol/HDL) [address] mg/[place] [address] [phone] Cholesterol 154 mg/dL 5 HDL Cholesterol 51.6 mg/dL 6 LDL Cholesterol 77 mg/dL 7 Laboratory test 06/08/2019 [facility] Uric Acid 4.2 mg/dL Low 4.4-7.6 [address] [place] [address] [phone] BUN 05/03/2019 N2N/CCD Import BUN 28 mg/dL High 6-24 mg/dL Creatinine 05/03/2019 N2N/CCD Import Creatinine 1.26 High 0.67-1.17 mg/dL mg/dL GFR Afr Amer 05/03/2019 N2N/CCD Import GFR Afr Amer 69.3 _ >60 GFR Non Afr Amer 05/03/2019 N2N/CCD Import GFR Non Afr Amer 57.3 _ >60 Colonoscopy 03/17/2019 N2N/CCD Import Colonoscopy adenoma MPV 12/15/2018 N2N/CCD Import MPV 8.7 fL 7.4-10.4 fL [place]% 12/15/2018 N2N/CCD Import [place]% 7.5 % 0 - 10 % [place]# 12/15/2018 N2N/CCD Import [place]# 0.4 0-0.8 10 10_3/ul 3/ul MCV 12/15/2018 N2N/CCD Import MCV 91 fL 80-94 fL MCHC 12/15/2018 N2N/CCD Import MCHC 34 g/dL 31-36 g/dL MCH 12/15/2018 N2N/CCD Import MCH 31 pg 27-31 pg Lymph% 12/15/2018 N2N/CCD Import Lymph% 27.2 % 20 - 45 % Lymph# 12/15/2018 N2N/CCD Import Lymph# 1.4 1.0-4.8 10_3/ul 10 3/ul LDL Cholesterol 12/15/2018 N2N/CCD Import LDL Cholesterol 71 mg/dL Hemoglobin A1c 12/15/2018 N2N/CCD Import Hemoglobin A1c 5.6 % 4.0-5.6 % Hemoglobin 12/15/2018 N2N/CCD Import Hemoglobin 16.1 g/dL 14.0-18.0 g/dL Hematocrit 12/15/2018 N2N/CCD Import Hematocrit 48 % High 36-46 % Neut# 12/15/2018 N2N/CCD Import Neut# 2.8 1.5-7.7 10_3/ul 10 3/ul Neut% 12/15/2018 N2N/CCD Import Neut% 56.6 % 50 - 75 % NRBC# 12/15/2018 N2N/CCD Import NRBC# 0 10_3/ul NRBC% 12/15/2018 N2N/CCD Import NRBC% 0.1 _ Platelets 12/15/2018 N2N/CCD Import Platelets 177 150-450 10_3/uL 10 3/uL Potassium 12/15/2018 N2N/CCD Import Potassium 4.3 3.5-5.0 mmol/L mmol/L Protein, Total 12/15/2018 N2N/CCD Import Protein, Total 6.7 g/dL 6.4- 8.9 g/dL RBC 12/15/2018 N2N/CCD Import RBC 5.25 4.18-5.48 10_6_/uL 10 6 /uL RDW 12/15/2018 N2N/CCD Import RDW 14 % 10.5-15 % Sodium 12/15/2018 N2N/CCD Import Sodium 140 135-145 mmol/L mmol/L Triglycerides 12/15/2018 N2N/CCD Import Triglycerides 111 mg/dL WBC 12/15/2018 N2N/CCD Import WBC 5.0 3.5-10.8 10_3/uL 10 3/uL A/G Ratio 12/15/2018 N2N/CCD Import A/G Ratio 1.9 _ 1-3 Albumin 12/15/2018 N2N/CCD Import Albumin 4.4 g/dL 3.2-5.2 g/dL Alk Phos 12/15/2018 N2N/CCD Import Alk Phos 69 U/L 34-104 U/L Alt 12/15/2018 N2N/CCD Import Alt 32 U/L 7-52 U/L Anion Gap 12/15/2018 N2N/CCD Import Anion Gap 3 mmol/L 2-11 mmol/L Ast 12/15/2018 N2N/CCD Import Ast 31 U/L 13-39 U/L Baso# 12/15/2018 N2N/CCD Import Baso# 0 10_3/ul 0-0.2 10 3/ul Baso% 12/15/2018 N2N/CCD Import Baso% 0.6 % 0 - 2 % Bilirubin Total 12/15/2018 N2N/CCD Import Bilirubin Total 0.60 0.2-1.0 mg/dL mg/dL BUN 12/15/2018 N2N/CCD Import BUN 20 mg/dL 6-24 mg/dL BUN/Creat Ratio 12/15/2018 N2N/CCD Import BUN/Creat Ratio 19.0 _ 8-20 Calcium 12/15/2018 N2N/CCD Import Calcium 9.3 mg/dL 8.6-10.3 mg/dL Chloride 12/15/2018 N2N/CCD Import Chloride 104 101-111 mmol/L mmol/L Cholesterol 12/15/2018 N2N/CCD Import Cholesterol 140 mg/dL Co2 12/15/2018 N2N/CCD Import Co2 33 mmol/L High 22-32 mmol/L Creatine Kinase 12/15/2018 N2N/CCD Import Creatine Kinase 134 U/L 10- 223 U/L Creatinine 12/15/2018 N2N/CCD Import Creatinine 1.05 0.67-1.17 mg/dL mg/dL Eosin# 12/15/2018 N2N/CCD Import Eosin# 0.4 0-0.6 10 10_3/ul 3/ul Eosin% 12/15/2018 N2N/CCD Import Eosin% 8.1 % High 0 - 5 % GFR Afr Amer 12/15/2018 N2N/CCD Import GFR Afr Amer 85.8 _ >60 GFR Non Afr Amer 12/15/2018 N2N/CCD Import GFR Non Afr Amer 70.9 _ >60 Globulin 12/15/2018 N2N/CCD Import Globulin 2.3 g/dL 2-4 g/dL Glucose 12/15/2018 N2N/CCD Import Glucose 97 mg/dL 70-100 mg/dL HDL Cholesterol 12/15/2018 N2N/CCD Import HDL Cholesterol 46.7 mg/dL 1 FASTING 2 Because ethnic data is not always readily [...] 15-29 5 Kidney failure <15 (or dialysis) 3 Therapeutic target for the treatment of diabetes mellitus patients is <7% HBA1C, and in selective patients <6.0%. Please refer to [place] [employer] diabetic care guidelines for further information. 4 Desirable: <150 Borderline High: 150-199 High: 200-499 Very High: >500 5 Desirable: <200 Borderline High: 200-239 High: >239 6 Low: <40 Desirable: 40-60 High: >60 7 Desirable: <100 Near Optimal: 100-129 Borderline High: 130-159 High: 160-189 Very High: >189 8 FASTING Procedures Description No Information Available Medical Devices Description No Information Available Encounters Type Date Location Provider Dx Diagnosis Office Visit 06/10/2019 [facility] Kervin Hubbard MD I10 Essential (primary ) 3:30p hypertension R73.03 Prediabetes Z68.28 Body mass index (BMI) 28.0-28.9, adult Assessments Date Code Description Provider 06/10/2019 I10 Essential (primary) hypertension Yovana Hubbard MD 06/10/2019 R73.03 Prediabetes Yovana Hubbard MD 06/10/2019 Z68.28 Body mass index (BMI) 28.0-28.9, adult Yovana Hubbard MD Plan of Treatment 06/10/2019 - Yovana Hubbard MDI10 Essential (primary) hypertensionNew Medication:Furosemide 20 mg - 1 every day by mouthNew Labs:Basic Metabolic Panel, Ordered: 06/10/19R73.03 [id number] Body mass index (BMI) 28.0-28.9 , adult Functional Status Description No Information Available Mental Status Description No Information Available Referrals Description No Information Available
--- OUTSIDE RECORDS SUMMARY | 2019-07-15 20:26 | XMS REPORT | Continuity of Care Document ---
:1955 External Reference #:[id number] Author Name Thalia Garcia, DO Address [address] [place] [address] Problems Active Problems Provider Date Tubular adenoma [...] CPT Code Status Date Vaccine Lot # [id number] Given 09/21/2018 Prevnar 13 44565 Given 06/17/2018 Shingrix - Shingles vaccine, Herpes Zoster 12742 Given 06/17/2018 Flu High Dose 82289 Given 04/13/2018 Shingrix - Shingles vaccine, Herpes Zoster 39838 Given 01/05/2018 Shingrix - Shingles vaccine, Herpes Zoster 42655 Given 05/08/2017 Flu High Dose 65072 Given 05/16/2016 Flu < 65 years 82043 Given 12/10/2015 Pneumovax - for >=2years - PPSV23 08798 Given 06/12/2015 Flu < 65 years 48064 Given 07/17/2014 Flu < 65 years 31151 Given 05/04/2013 Zoster Shingles Vaccine For Subcutaneous Injection 97214 Given 05/04/2013 Tdap - Boostrix/Adacel 75235 Given 05/04/2013 Flu < 65 years 05922 Given 06/13/2011 Influenza Virus Vaccine, Quadrivalent, Split, [...] Result H/L Range Note Laboratory test 06/14/2019 [facility] Surgical SEE RESULT [address] [place] [address] Order [phone] Laboratory test 06/14/2019 [facility] Clotest SEE RESULT [address] [place] [address] [phone] Comp Metabolic 06/08/2019 [facility] Sodium 139 mmol/L Normal 135-145 [address] [place] [address] [phone] Chloride 103 mmol/L Normal 101-111 Co2 Carbon [...] 4 mmol/L Normal 2-11 Laboratory test 06/08/2019 [facility] Hemoglobin A1c 5.8 % High 4.0-5.6 [address] (Glyco HGB) [place] [address] [phone] Lipid Profile 06/08/2019 [facility] Triglycerides 125 6 (Trig/Chol/HDL) [address] mg/[place] [address] [phone] Cholesterol 154 mg/dL 7 HDL Cholesterol 51.6 mg/dL 8 LDL Cholesterol 77 mg/dL 9 Laboratory test 06/08/2019 [facility] Uric Acid 4.2 mg/dL Low 4.4-7.6 [address] [place] [address] [phone] BUN 05/03/2019 N2N/CCD Import BUN 28 mg/dL [...] [address]: Amrit Ochoa DO Acct: [id number] Unit: [id number] AGE: 64 Location: ENDO Re06/14/19 SEX: M Status: DEP REF SPEC: [id number] OLVIN: 06/14/19- SUBM DR: Amrit Ochoa DO REQ: [id number] RECD: 06/14/19 STATUS: KENNETH JONES DR: Shraddha Hbubard MD _ ORDERED: LEVEL 4/3, IMMUNO-FIRST ADDENDUM [...] CONTINUED ON NEXT PAGE DEPARTMENT OF PATHOLOGY, [address] [place] [address] Shon Berumen M.D. Director [facility] # [id number] PRE-OPERATIVE DIAGNOSIS 1) Rule out metaplasia; 2) [...] 1204 END OF REPORT DEPARTMENT OF PATHOLOGY, [address] [place] [address] Shon Berumen M.D. Director [facility] # [id number] 2 SEE RESULT BELOW Name: REGINO KNOWLES : [address]: Amrit Ochoa DO Acct: [id number] Unit: [id number] AGE: 64 Location: ENDO Re06/14/19 SEX: M Status: REG REF SPEC: [id number] OLVIN: 06/14/[address]: Amrit Ochoa DO REQ: [id number] RECD: 06/14/19 STATUS: COMP OTHR DR: Shraddha Hubbard MD _ SOURCE: GAS ANTRUM SPDESC: ORDERED: Clotest Procedure Result Reported Site Clotest Final 06/15/19722 ML Clotest Negative * ML - Main Lab . END OF REPORT DEPARTMENT OF PATHOLOGY, [address] [place] [address] Shon Berumen M.D. Director [facility] # [id number] 3 FASTING 4 Because ethnic data is [...] in selective patients <6.0%. Please refer to [place] [employer] diabetic care guidelines for further [...] Location Provider Dx Diagnosis Office Visit 06/10/2019 [facility] Kervin Hubbard MD I10 Essential (primary ) [...] by mouthNew Labs:Basic Metabolic Panel, Ordered: 06/10/19R73.03 PcvfzclqoffV65.28 Body mass index (BMI) 28.0-28.9 , adult Functional Status Description No Information Available Mental Status Description No Information Available Referrals Description No Information Available
--- OUTSIDE RECORDS SUMMARY | 2019-07-15 20:26 | XMS REPORT | Continuity of Care Document ---
:1955 External Reference #:[id number] Author Name Emmanuel Lanier MD Address [address] [place] [address] Problems Active Problems Provider Date Atrial fibrillation Onset: 04/04/2011 Tubular adenoma of colon Onset: 03/18/2019 Chronic kidney disease Onset: 01/09/2018 Essential hypertension Onset: 12/04/2015 Prediabetes Emmanuel Lanier MD Onset: 07/12/2019 Social History Type Date Description Comments Sex Unknown Tobacco Use Start: Unknown End: Unknown Patient is a former smoker Smoking Status Reviewed: 07/12/19 Patient is a former smoker Allergies, Adverse Reactions, Alerts Description No Information Available Medications Active Medications SIG Qnty Indications Ordering Date Provider Amlodipine Besylate 1 tab by mouth 30tabs Emmanuel Lanier MD 07/12/2019 5mg every day Tablets Albuterol Sulfate HFA Inhalation; Take 18units Emmanuel Lanier MD 07/12/2019 Two Puffs Every 108(90Base) mcg/Act Four To Six Hours Aerosol as Necessary For Shortness Of Breath Fluticasone 1 twice each day 60units Emmanuel Lanier MD 07/12/2019 Propionate/Salmeterol Inhalation Diskus 250-50mcg/Dose Aerosol Pro Comfort Inhaler as directed dx 1units Emmanuel Lanier MD 07/12/2019 Spacer Chamber Adult wheezing Misc Lisinopril 1 daily Oral Unknown 02/17/2019 40mg Tablets Rosuvastatin Calcium 1 daily Oral 90tabs Unknown 10/28/2018 10mg Tablets Metoprolol Succinate Oral; Take 1 90tabs Unknown 08/13/2018 ER Tablet By Mouth 50mg Tablets ER 24HR Every Day Pantoprazole Sodium Oral; Take 1 90tabs Unknown 11/01/2017 Tablet By Mouth 40mg Tablets DR Once Daily Betamethasone apply twice daily 60units Unknown 07/01/2017 Valerate External 0.1% Cream Diltiazem HCL ER Oral; Take One 90caps Unknown 12/12/2016 Coated Beads Capsule By Mouth 120mg Caps Once Daily ER 24HR Allopurinol Oral; Take 1 90tabs Unknown 12/12/2016 300mg Tablet By Mouth Tablets Every Day Aspirin Ec 1 daily Oral 30tabs Unknown 04/04/[address] Paola Medications Furosemide 1 every day by 30tabs I10 Shraddha Hubbard MD 06/10/2019 - 20mg mouth 07/10/2019 Tablets Immunizations CPT Code Status Date Vaccine Lot # [id number] Given 06/10/2019 Flu High Dose [id number] 75525 Given 09/21/2018 Prevnar 13 82750 Given 06/17/2018 Shingrix - Shingles vaccine, Herpes Zoster 61297 Given 06/17/2018 Flu High Dose 01948 Given 04/13/2018 Shingrix - Shingles vaccine, Herpes Zoster 89893 Given 01/05/2018 Shingrix - Shingles vaccine, Herpes Zoster 92041 Given 05/08/2017 Flu High Dose 08378 Given 05/16/2016 Flu < 65 years 72142 Given 12/10/2015 Pneumovax - for >=2years - PPSV23 13632 Given 06/12/2015 Flu < 65 years 68391 Given 07/17/2014 Flu < 65 years 01936 Given 05/04/2013 Zoster Shingles Vaccine For Subcutaneous Injection 86770 Given 05/04/2013 Tdap - Boostrix/Adacel 08729 Given 05/04/2013 Flu < 65 years 18399 Given 06/13/2011 Influenza Virus Vaccine, Quadrivalent, Split, Im Use 0.25ML Vital Signs Date Vital Result Comment 07/12/2019 3:31pm BP Systolic 114 mmHg BP Diastolic 66 mmHg Height 63.5 inches 5'3.50" Weight 164.00 lb Heart Rate 70 /min Body Temperature 96.7 F O2 % BldC Oximetry 97 % BMI (Body Mass Index) 28.6 kg/m2 06/10/2019 3:30pm BP Systolic 156 mmHg BP Diastolic 80 mmHg Height 63.5 inches 5'3.50" Weight 165.00 lb Heart Rate 71 /min Body Temperature 96.8 F O2 % BldC Oximetry 98 % BMI (Body Mass Index) 28.8 kg/m2 Results Test Acquired Date Facility Test Result H/L Range Note Xray 07/12/2019 [facility] Ultrasound <pending> [address] [place] [address] Limited [phone] Laboratory test 06/14/2019 [facility] Surgical SEE RESULT [address] [place] [address] Order [phone] Laboratory test 06/14/2019 [facility] Clotest SEE RESULT [address] [place] [address] [phone] Comp Metabolic 06/08/2019 [facility] Sodium 139 mmol/L Normal 135-145 [address] [place], [place] [address] [phone] Chloride 103 mmol/L Normal 101-111 Co2 Carbon [...] 4 mmol/L Normal 2-11 Laboratory test 06/08/2019 [facility] Hemoglobin A1c 5.8 % High 4.0-5.[address] (Glyco HGB) [place], [place] [id number] [phone] Lipid Profile 06/08/2019 [facility] Triglycerides 125 6 (Trig/Chol/HDL) [address] mg/dL [place], [place] [address] [phone] Cholesterol 154 mg/dL 7 HDL Cholesterol 51.6 mg/dL 8 LDL Cholesterol 77 mg/dL 9 Laboratory test 06/08/2019 [facility] Uric Acid 4.2 mg/dL Low 4.4-7.6 [address] [place] [address] [phone] BUN 05/03/2019 N2N/CCD Import BUN 28 mg/dL High 6-24 mg/dL Creatinine 05/03/2019 N2N/CCD Import Creatinine 1.26 mg/dL High 0.67- 1.17 mg/dL GFR Afr Amer 05/03/2019 N2N/CCD Import GFR Afr Amer 69.3 _ >60 GFR Non Afr 05/03/2019 N2N/CCD Import GFR Non Afr 57.3 _ >60 Amer Amer Colonoscopy 03/17/2019 N2N/CCD Import Colonoscopy adenoma 1 SEE RESULT BELOW Name: ELENIMAYRA Saab : [address]: Amrit Ochoa DO Acct: [id number] Unit: [id number] AGE: 64 Location: ENDO Re06/14/19 SEX: M Status: DEP REF SPEC: [id number] OLVIN: 06/14/19- SUBM DR: Amrit Ochoa DO REQ: [id number] RECD: 06/14/19 STATUS: KENNETH JONES DR: Shraddha [...] CONTINUED ON NEXT PAGE DEPARTMENT OF PATHOLOGY, [address] [place] [address] Shon Berumen M.D. Director [facility] # [id number] PRE-OPERATIVE DIAGNOSIS 1) Rule out metaplasia; 2) [...] 1204 END OF REPORT DEPARTMENT OF PATHOLOGY, [address] [place] [address] Shon Berumen M.D. Director [facility] # [id number] 2 SEE RESULT BELOW Name: MAYRA KNOWLES : [address]: Amrit Ochoa DO Acct: [id number] Unit: [id number] AGE: 64 Location: ENDO Re06/14/19 SEX: M Status: REG REF SPEC: [id number] OLVIN: 06/14/[address] [facility] [address]: Amrit Ochoa DO REQ: [id number] RECD: 06/14/19 STATUS: URI JONES DR: Shraddha Hubbard MD _ SOURCE: GAS ANTRUM SPDESC: ORDERED: Clotest Procedure Result Reported Site Clotest Final 06/15/19722 ML Clotest Negative * ML - Main Lab . END OF REPORT DEPARTMENT OF PATHOLOGY, [address] [place] [address] Shon Berumen M.D. Director [facility] # [id number] 3 FASTING 4 Because ethnic data is [...] in selective patients <6.0%. Please refer to [place] [employer] diabetic care guidelines for further [...] Location Provider Dx Diagnosis Office Visit 06/10/2019 [facility] Main Shraddha Hubbard MD I10 Essential (primary ) 3:30p hypertension R73.03 Prediabetes Z23 Encounter for immunization Z68.28 Body mass index (BMI) 28.0-28.9, adult Assessments Date Code Description Provider 07/12/2019 R05 Cough Emmanuel Lanier MD 07/12/2019 D48.5 Neoplasm of uncertain behavior of skin Emmanuel Lanier MD 07/12/2019 Z68.28 Body mass index (BMI) 28.0-28.9, adult Emmanuel Lanier MD 06/10/2019 I10 Essential (primary) hypertension Shraddha Hubbard MD 06/10/2019 R73.03 Prediabetes Shraddha Hubbard MD 06/10/2019 Z23 Encounter for immunization Shraddha Hubbard MD 06/10/2019 Z68.28 Body mass index (BMI) 28.0-28.9, adult Shraddha Hubbard MD Plan of Treatment Future Appointment(s):07/15/2019 1:45 pm - Emmanuel Lanier MD at [facility]2018 - Emmanuel Lanier MDR05 ZevtlY93.5 Neoplasm of uncertain behavior of skinZ68.28 Body mass index (BMI) 28.0-28.9, adultAllNew Medication:Amlodipine Besylate 5 mg - 1 tab by mouth every dayAlbuterol Sulfate HFA 108(90 Base) mcg/ Act - Inhalation; Take Two Puffs Every Four To Six Hours as Necessary For Shortness Of BreathFluticasone Propionate/Salmeterol Diskus 250-50 mcg/Dose - 1 twice each day InhalationPro Comfort Inhaler Spacer Chamber Adult - as directed dx wheezing Functional Status Description No Information Available Mental Status Description No Information Available Referrals Description No Information Available
[2019-07-15 20:37] VITALS: BP 112/76
--- NOTE | 2019-07-15 21:30 | UC ---
Skin Complaint HPI - HPI Summary HPI Summary: 64 year old male, not on any anticoagulant underwent biopsy today by Dr. aLnier, patient noted bleeding afterwards. Unable to contain bleeding with pressure, changing bandages, came here. no prior bleeding/ poor wound healing. no lightheaded/ dizziness. feeling well. - History of Current Complaint Chief Complaint: UCSkin Time Seen by Provider: 07/15/19 20:32 Stated Complaint: NOSE COMPLAINT Hx Obtained From: Patient Onset/Duration: Sudden Onset, Lasting Hours Skin Exposure Onset/Duration: Hours Ago Timing: Constant Current Severity: None Pain Intensity: 0 Pain Scale Used: 0-10 Numeric Location: Discrete - nasal bridge - Allergy/Home Medications Allergies/Adverse Reactions: Allergies Allergy/AdvReac Type Severity Reaction Status Date / Time No Known Allergies Allergy Verified 06/09/19 14:08 Home Medications: Home Medications Aspirin TAB* [Aspirin 325 MG TAB*] 1 tab PO DAILY WITH MEAL 07/15/19 [History Confirmed 07/15/19] PMH/Surg Hx/FS Hx/Imm Hx Previously Healthy: Yes - Surgical History Surgical History: None Surgery Procedure, Year, and Place: nasal biopsy - Family History Known Family History: Positive: None, Non-Contributory Negative: Blood Disorder - Social History Occupation: Employed Full-time Alcohol Use: Daily Substance Use Type: None Smoking Status (MU): Former Smoker - Immunization History Most Recent Influenza Vaccination: 2016 Most Recent Tetanus Shot: up to date Review of Systems All Other Systems Reviewed And Are Negative: Yes Constitutional: Negative: Fever, Chills, Fatigue Skin: Positive: Other - bleeding from resection site. Neurological: Negative: Headache Is Patient Immunocompromised?: No Physical Exam Triage Information Reviewed: Yes Appearance: Well-Appearing, No Pain Distress, Well-Nourished Vital Signs: Initial Vital Signs Temp 97.7 F 07/15/19 20:31 Pulse 86 07/15/19 20:31 Resp 16 07/15/19 20:31 BP 112/76 07/15/19 20:31 Pulse Ox 98 07/15/19 20:31 Vital Signs Reviewed: Yes Eyes: Positive: Conjunctiva Clear ENT: Positive: Hearing grossly normal Neck: Positive: Supple, Nontender Neurological Exam: Normal Psychological Exam: Normal Skin: Positive: Other - superficial biopsy on nasal bridge, midline, scrape biopsy with area of bleeding in center. decreased with pressure x 20 minutes, pressure dressing with steri-strips, adaptic. Course/Dx - Course Course Of Treatment: Bleeding after resection of mole: - Keep compression dressing on for 24 hours, remove under part of dressing with small amount of water to prevent sticking, pulling off scab - Follow up with Dr as per instructions - Return with increased bleeding or hold pressure x 30 minutes over area - void motrin/ ibuprofen/ alleve/ aspirin/ naproxen for next 24 hours - Diagnoses Provider Diagnosis: Surgical wound breakdown Discharge ED - Sign-Out/Discharge Documenting (check all that apply): Patient Departure All imaging exams completed and their final reports reviewed: No Studies - Discharge Plan Condition: Good Disposition: HOME Patient Education Materials: Laceration (DC) Referrals: Shraddha Hubbard MD [Primary Care Provider] - Additional Instructions: - Keep compression dressing on for 24 hours, remove under part of dressing with small amount of water to prevent sticking, pulling off scab - Follow up with Dr as per instructions - Return with increased bleeding or hold pressure x 30 minutes over area - void motrin/ ibuprofen/ alleve/ aspirin/ naproxen for next 24 hours - Billing Disposition and Condition Condition: GOOD Disposition: Home
== END 2019-07-15 21:44 | disposition home or self-care (01) ==
LOC: UCEAST 20:21
DX: L76.82 Other postprocedural complications of skin and subcutaneous tissue (principal); Z87.891 Personal history of nicotine dependence; Y84.8 Other medical procedures as the cause of abnormal reaction of the patient, or of later complication, without mention of misadventure at the time of the procedure
CPT/HCPCS: 99211; G0463

== ENCOUNTER 2019-11-06 13:23 | Emergency (ER) | payer OTHER ==
--- OUTSIDE RECORDS SUMMARY | 2019-11-06 14:01 | XMS REPORT | Continuity of Care Document ---
:1955 External Reference #:[id number] Author Name Emmanuel Lanier MD (transmitted by agent of provider Anya Lamar) Address [address] [place] [address] Problems Active Problems Provider Date Adult health examination Onset: 09/21/2018 Atrial fibrillation Onset: 04/04/2011 Tubular adenoma of colon Onset: 03/18/2019 Chronic kidney disease Onset: 01/09/2018 Essential hypertension Onset: 12/04/2015 Prediabetes Emmanuel Lanier MD Onset: 07/12/2019 Social History Type Date Description Comments Sex Unknown Tobacco Use Start: Unknown End: Unknown Patient is a former smoker Smoking Status Reviewed: 10/17/19 Patient is a former smoker Allergies, Adverse Reactions, Alerts Active Allergies Reaction Severity Comments Date Lisinopril Cough Mild 09/20/2019 Inactive Allergies NKDA 07/15/2019 Medications Active Medications SIG Qnty Indications Ordering Date Provider Furosemide Take 1 Tablet By 30tabs Shraddha Haydee, 08/01/2019 20mg Tablets Mouth Daily Amlodipine Besylate 1 tab by mouth 30tabs Emmanuel Lanier MD 07/12/2019 5mg every day Tablets Albuterol Sulfate HFA Inhalation; Take 18units Emmanuel Lanier MD 07/12/2019 Two Puffs Every 108(90Base) mcg/Act Four To Six Hours Aerosol as Necessary For Shortness Of Breath Fluticasone 1 twice each day 60units Emmanuel Lanier MD 07/12/2019 Propionate/Salmeterol Inhalation Diskus 250-50mcg/Dose Aerosol Pro Comfort Inhaler as directed dx 1unbalta Lanier MD 07/12/2019 Spacer Chamber Adult wheezing Misc Rosuvastatin Calcium 1 daily Oral 90tabs Unknown 10/28/2018 10mg Tablets Metoprolol Succinate oral; take 1 90tabs Emmanuel Lanier MD 08/13/2018 ER tablet by mouth 50mg Tablets ER 24HR every day Pantoprazole Sodium oral; take 1 90tabs Emmanuel Lanier MD 11/01/2017 tablet by mouth 40mg Tablets DR once daily Betamethasone apply twice daily 60units Unknown 07/01/2017 Valerate External 0.1% Cream Diltiazem HCL ER Oral; Take One 90caps Unknown 12/12/2016 Coated Beads Capsule By Mouth 120mg Caps Once Daily ER 24HR Allopurinol Oral; Take 1 90tabs Unknown 12/12/2016 300mg Tablet By Mouth Tablets Every Day History Medications Furosemide 1 every day by 30tabs I10 Shraddha Hubbard MD 06/10/2019 - 20mg mouth 07/10/2019 Tablets Immunizations CPT Code Status Date Vaccine Lot # [id number] Given 06/10/2019 Flu High Dose [id number] 18983 Given 09/21/2018 Prevnar 13 56056 Given 06/17/2018 Shingrix - Shingles vaccine, Herpes Zoster 56386 Given 04/13/2018 Shingrix - Shingles vaccine, Herpes Zoster 57791 Given 01/05/2018 Shingrix - Shingles vaccine, Herpes Zoster 17911 Given 12/10/2015 Pneumovax - for >=2years - PPSV23 46207 Given 05/04/2013 Zoster Shingles Vaccine For Subcutaneous Injection 35021 Given 05/04/2013 Tdap - Boostrix/Adacel Vital Signs Date Vital Result Comment 10/17/2019 1:27pm BP Systolic 120 mmHg BP Diastolic 80 mmHg Height 62.25 inches 5'2.25" Weight 162.00 lb Heart Rate 97 /min Body Temperature 96.4 F O2 % BldC Oximetry 97 % BMI (Body Mass Index) 29.4 kg/m2 07/15/2019 1:46pm BP Systolic 118 mmHg BP Diastolic 68 mmHg Heart Rate 81 /min Body Temperature 96.4 F O2 % BldC Oximetry 98 % Results Test Acquired Date Facility Test Result H/L Range Note CFM Urinalysis 10/17/2019 [facility] Ua PH Test 7.0 ( )- - Strip Ua WBC neg Ua Protein neg Urine Glucose QL neg Urine Ketones QL Test Strip neg Urine Bilirubin TTL QL T-Strip neg Urine Urobilinogen QN TS 1.0 Urine Nitrite QL TS neg Ua Occult Blood neg Xray 10/17/2019 [facility] Ultrasound <pending> [address] [place] [address] Limited [phone] CBC Auto 09/26/2019 [facility] White Blood Count 6.8 10^3/uL Normal 3.5-[address] [place] [address] [phone] Red Blood Count 4.88 10^6/uL Normal 4.18-5.48 Hemoglobin 15.0 g/dL Normal 14.0-18.0 Hematocrit 45 % Normal 42-52 Mean Corpuscular Volume 92 fL Normal 80-94 Mean Corpuscular Hemoglobin 31 pg Normal 27-31 Mean Corpuscular HGB Conc 34 g/dL Normal 31-36 Red Cell Distribution Width 14 % Normal 10-15 Platelet Count 226 10^3/uL Normal 150-450 Mean Platelet Volume 8.3 fL Normal 7.4-10.4 Abs Neutrophils 4.2 10^3/uL Normal 1.5-7.7 Abs Lymphocytes 1.8 10^3/uL Normal 1.0-4.8 Abs Monocytes 0.5 10^3/uL Normal 0-0.8 Abs Eosinophils 0.2 10^3/uL Normal 0-0.6 Abs Basophils 0.0 10^3/uL Normal 0-0.2 Abs Nucleated RBC 0.0 10^3/uL Granulocyte % 62.3 % Lymphocyte % 26.3 % Monocyte % 8.0 % Eosinophil % 3.1 % Basophil % 0.3 % Nucleated Red Blood Cells % 0.1 CBC Auto 07/29/2019 [facility] White Blood 5.9 10^3/uL Normal 3.5-10.[address] [place] [address] [phone] Red Blood Count 4.80 10^6/uL Normal 4.18-5.48 Hemoglobin 14.7 g/dL Normal 14.0-18.0 Hematocrit 44 % Normal 42-52 Mean Corpuscular Volume 92 fL Normal 80-94 Mean Corpuscular Hemoglobin 31 pg Normal 27-31 Mean Corpuscular HGB Conc 34 g/dL Normal 31-36 Red Cell Distribution Width 14 % Normal 10-15 Platelet Count 202 10^3/uL Normal 150-450 Mean Platelet Volume 8.2 fL Normal 7.4-10.4 Abs Neutrophils 3.6 10^3/uL Normal 1.5-7.7 Abs Lymphocytes 1.5 10^3/uL Normal 1.0-4.8 Abs Monocytes 0.4 10^3/uL Normal 0-0.8 Abs Eosinophils 0.4 10^3/uL Normal 0-0.6 Abs Basophils 0.0 10^3/uL Normal 0-0.2 Abs Nucleated RBC 0.0 10^3/uL Granulocyte % 60.0 % Lymphocyte % 25.2 % Monocyte % 7.6 % Eosinophil % 6.8 % Basophil % 0.4 % Nucleated Red Blood Cells % 0.0 INR/Protime 07/29/2019 [facility] INR 1.31 High 0.82-1.[address] [place] [address] [phone] Laboratory 07/15/2019 [facility] Surgical SEE 2, test finding [address] Pathology RESULT 3 [place] [address] BELOW [phone] Xray 07/15/2019 [facility] Ultrasound <pending [address] Retroperitoneal > [place] [address] Limited [phone] Xray 07/12/2019 [facility] Ultrasound <pending [address] Abdominal Limited > [place] [address] [phone] Laboratory 06/14/2019 [facility] Clotest SEE 4 test finding [address] [place] [address] BELOW [phone] Laboratory 06/14/2019 [facility] Surgical SEE 5 test finding [address] [place] [address] BELOW [phone] Laboratory 06/08/2019 [facility] Hemoglobin A1c 5.8 % High 4.0 -5.6 6, test finding [address] (Glyco HGB) [address] [place] [address] [phone] Lipid Profile 06/08/2019 [facility] Triglycerides 125 8 (Trig/Chol/HDL [address] mg/dL ) [place] [address] [phone] Cholesterol 154 mg/dL 9 HDL Cholesterol 51.6 mg/dL 10 LDL Cholesterol 77 mg/dL 11 Laboratory test 06/08/2019 [facility] Uric Acid 4.2 mg/dL Low 4.4-7.6 [address] [place] [address] [phone] Comp Metabolic 06/08/2019 [facility] Sodium 139 mmol/L Normal 135-[address] [place] [address] [phone] Chloride 103 mmol/L Normal 101-111 Co2 Carbon [...] Egfr Non- 57.8 >60 Egfr 69.9 >60 13 Potassium 5.3 mmol/L High 3.5-5.0 Anion Gap 4 mmol/L Normal 2-11 BUN 05/03/2019 N2N/CCD Import BUN 28 mg/dL High 6-24 mg/dL Creatinine 05/03/2019 N2N/CCD Import Creatinine 1.26 mg/dL High 0.67- 1.17 mg/dL GFR Afr Amer 05/03/2019 N2N/CCD Import GFR Afr Amer 69.3 _ >60 GFR Non Afr Amer 05/03/2019 N2N/CCD Import GFR Non Afr Amer 57.3 _ >60 1 Standard intensity warfarin therapeutic range: 2.0-3.0 High intensity warfarin therapeutic range: 2.5-3.5 2 [id number] 3 SEE RESULT BELOW Name: REGINO KNOWLES Kaiser : [address]: Emmanuel Lanier MD Acct: [id number] Unit: [id number] AGE: 64 Location: [facility] Re07/15/19 SEX: M Status: REG REF SPEC: [id number] OLVIN: 07/15/[address] [facility] [address]: Emmanuel Lanier MD REQ: [id number] RECD: 07/15/19 STATUS: SOUT _ ORDERED: LEVEL 4, IMMUNO-FIRST, IMMUNO-ADDL, IMMUNO-MULTI COMMENTS: [id number] FINAL DIAGNOSIS Skin, bridge of nose, biopsy: -- Epithelioid blue nevus. -- Lesional cells extend to the biopsy base. COMMENT: Deeper levels of sectioning and immunohistochemical stains, with appropriately reacting controls, for HMB-45, SOX-10, and multiplex Ki67/Melan-A, were performed in the evaluation of this lesion and support the diagnosis. Conservative excision of an epithelioid blue nevus is not required unless this lesion exhibits concerning clinical changes or becomes larger. CLINICAL HISTORY Very dark lesion on bridge of nose PRE-OPERATIVE DIAGNOSIS Dysplastic nevus CONTINUED ON NEXT PAGE DEPARTMENT OF PATHOLOGY, [address] [place] [address] Shon Berumen M.D. Director [facility] # [id number] GROSS DESCRIPTION The specimen is received in formalin with no source identified, with a requisition labeled, Skin Bridge of Nose, and consists of a 0.7 x 0.5 cm yellow-white ovoid skin shave with a 0.2 x 0.2 cm blue-black irregular bordered macule. The specimen is inked, serially sectioned and submitted entirely in one cassette. Signed by and Reported on: Rosalee Santoyo MD 07/19/19 1154 END OF REPORT DEPARTMENT OF PATHOLOGY, [address] [place] [address] Shon Berumen M.D. Director [facility] # [id number] 4 SEE RESULT BELOW Name: ELENIREGINO Saab : [address]: Amrit Ochoa DO Acct: [id number] Unit: [id number] AGE: 64 Location: ENDO Re06/14/19 SEX: M Status: REG REF SPEC: [id number] OLVIN: 06/14/[address] [facility] [address]: Amrit Ochoa DO REQ: [id number] RECD: 06/14/19 STATUS: URI JONES DR: Shraddha Hubbard MD _ SOURCE: GAS ANTRUM SPDESC: ORDERED: Clotest Procedure Result Reported Site Clotest Final 06/15/19722 ML Clotest Negative * ML - Main Lab . END OF REPORT DEPARTMENT OF PATHOLOGY, [address] [place] [address] Shon Berumen M.D. Director [facility] # [id number] 5 SEE RESULT BELOW Name: REGINO KNOWLES : [address]: Amrit Ochoa DO Acct: [id number] Unit: [id number] AGE: 64 Location: ENDO Re06/14/19 SEX: M Status: DEP REF SPEC: [id number] OLVIN: 06/14/19- SUBM DR: Amrit Ochoa DO REQ: [id number] RECD: 06/14/19 STATUS: KENNETH JONES DR: Shraddha [...] CONTINUED ON NEXT PAGE DEPARTMENT OF PATHOLOGY, [address] [place] [address] Shon Berumen M.D. Director [facility] # [id number] PRE-OPERATIVE DIAGNOSIS 1) Rule out metaplasia; 2) [...] 1204 END OF REPORT DEPARTMENT OF PATHOLOGY, [address] [place] [address] Shon Berumen M.D. Director [facility] # [id number] 6 FASTING 7 Therapeutic target for the treatment of diabetes mellitus patients is <7% HBA1C, and in selective patients <6.0%. Please refer to [place] [employer] diabetic care guidelines for further information. 8 Desirable: <150 Borderline High: 150-199 High: 200-499 Very High: >500 9 Desirable: <200 Borderline High: 200-239 High: >239 10 Low: <40 Desirable: 40-60 High: >60 11 Desirable: <100 Near Optimal: 100-129 Borderline High: 130-159 High: 160-189 Very High: >189 12 FASTING 13 Because ethnic data is not always readily [...] 15-29 5 Kidney failure <15 (or dialysis) Procedures Date Code Description Status 10/17/2019 13653 Brief Emotional/Behav Assessment W/ Scoring Doc Per Completed Standard Inst 07/15/2019 24290 Shave Skin Lesion <.6CM Face/Ear/Eyelid/Nose/Lip/Mucous Completed Membr Medical Devices Description No Information Available Encounters Type Date Location Provider Dx Diagnosis Office Visit 07/12/2019 3:30p CFM Kervin Lanier MD R05 Cough D48.5 Neoplasm of uncertain behavior of skin Z68.28 Body mass index (BMI) 28.0-28.9, adult Office Visit 06/10/2019 3:30p CFM Kervin Hubbard MD I10 Essential ( primary) hypertension R73.03 Prediabetes Z23 Encounter for immunization Z68.28 Body mass index (BMI) 28.0-28.9, adult Assessments Date Code Description Provider 10/17/2019 M54.5 Low back pain Emmanuel Lanier MD 07/15/2019 D48.5 Neoplasm of uncertain behavior of skin Emmanuel Lanier MD 07/12/2019 R05 Cough Emmanuel Lanier MD 07/12/2019 [...] Shraddha Hubbard MD Plan of Treatment Future Appointment(s):11/29/2019 9:30 am - Emmanuel Lanier MD at [facility] Main2019 - Emmanuel Lanier, MDM54.5 Low back pain Functional Status Description No Information Available Mental Status Description No Information Available Referrals Description No Information Available
--- OUTSIDE RECORDS SUMMARY | 2019-11-06 14:01 | XMS REPORT | Continuity of Care Document ---
:1955 External Reference #:[id number] Author Name Emmanuel Lanier MD Address [address] [place] [address] Problems Active Problems Provider Date Atrial fibrillation Onset: 04/04/2011 Tubular adenoma of colon Onset: 03/18/2019 Chronic kidney disease Onset: 01/09/2018 Essential hypertension Onset: 12/04/2015 Prediabetes Emmanuel Lanier MD Onset: 07/12/2019 Social History Type Date Description Comments Sex Unknown Tobacco Use Start: Unknown End: Unknown Patient is a former smoker Smoking Status Reviewed: 07/15/19 Patient is a former smoker Allergies, Adverse Reactions, Alerts Active Allergies Reaction Severity Comments Date Lisinopril Cough Mild 09/20/2019 Inactive Allergies NKDA 07/15/2019 Medications Active Medications SIG Qnty Indications Ordering Date Provider Furosemide Take 1 Tablet By 30tabs Shraddha Hubbard, 08/01/2019 20mg Tablets Mouth Daily Amlodipine Besylate [...] Oral 30tabs Unknown 04/04/[address] History Medications Furosemide 1 every day by 30tabs I10 Shraddha Hubbard MD 06/10/2019 - 20mg mouth 07/10/2019 Tablets Immunizations CPT Code Status Date Vaccine Lot # [id number] Given 06/10/2019 Flu High Dose [id number] 74171 Given 09/21/2018 Prevnar 13 39226 Given 06/17/2018 Shingrix - Shingles vaccine, Herpes Zoster 28686 Given 06/17/2018 Flu High Dose 42368 Given 04/13/2018 Shingrix - Shingles vaccine, Herpes Zoster 44317 Given 01/05/2018 Shingrix - Shingles vaccine, Herpes Zoster 66950 Given 05/08/2017 Flu High Dose 87693 Given 05/16/2016 Flu < 65 years 68106 Given 12/10/2015 Pneumovax - for >=2years - [id number] 56224 Given 06/12/2015 Flu < 65 years 11309 Given 07/17/2014 Flu < 65 years 69215 Given 05/04/2013 Zoster Shingles Vaccine For Subcutaneous Injection 53585 Given 05/04/2013 Tdap - Boostrix/Adacel 03889 Given 05/04/2013 Flu < 65 years 05864 Given 06/13/2011 Influenza Virus Vaccine, Quadrivalent, Split, Im Use 0.25ML Vital Signs Date Vital Result Comment 07/15/2019 1:46pm BP Systolic 118 mmHg BP Diastolic 68 mmHg Heart Rate 81 /min Body Temperature 96.4 F O2 % BldC Oximetry 98 % 07/12/2019 3:31pm BP Systolic 114 mmHg BP Diastolic 66 mmHg Height 63.5 inches 5'3.50" Weight 164.00 lb Heart Rate 70 /min Body Temperature 96.7 F O2 % BldC Oximetry 97 % BMI (Body Mass Index) 28.6 kg/m2 Results Test Acquired Date Facility Test Result H/L Range Note CBC Auto 09/26/2019 [facility] White Blood 6.8 10^3/uL Normal 3.5-10.[address] [place] [address] [phone] Red Blood Count 4.88 10^6/uL Normal 4.18-5.48 [...] Blood Cells % 0.1 CBC Auto 07/29/2019 [facility] White Blood 5.9 10^3/uL Normal 3.5-10.[address] [place] [address] [phone] Red Blood Count 4.80 10^6/uL Normal 4.18-5.48 [...] Red Blood Cells % 0.0 INR/Protime 07/29/2019 [facility] INR 1.31 High 0.82-1.[address] [place] [address] [phone] Laboratory 07/15/2019 [facility] Surgical SEE 2, test finding [address] Pathology RESULT 3 [place] [address] BELOW [phone] Xray 07/15/2019 [facility] Ultrasound <pending [address] Retroperitoneal > [place] [address] Limited [phone] Xray 07/12/2019 [facility] Ultrasound <pending [address] Abdominal Limited > [place] [address] [phone] Laboratory 06/14/2019 [facility] Surgical SEE 4 test finding [address] [place] [address] BELOW [phone] Laboratory 06/14/2019 [facility] Clotest SEE 5 test finding [address] [place] [address] BELOW [phone] Comp 06/08/2019 [facility] Sodium 139 Normal 135-145 [address] mmol/[place] [address] [phone] Chloride 103 mmol/L Normal 101-111 Co2 Carbon [...] Egfr Non- 57.8 >60 Egfr 69.9 >60 7 Potassium 5.3 mmol/L High 3.5-5.0 Anion Gap 4 mmol/L Normal 2-11 Laboratory test 06/08/2019 [facility] Hemoglobin A1c 5.8 % High 4.0-5.[address] (Glyco HGB) [place] [address] [phone] Lipid Profile 06/08/2019 [facility] Triglycerides 125 9 (Trig/Chol/HDL) [address] mg/[place] [address] [phone] Cholesterol 154 mg/dL 10 HDL Cholesterol 51.6 mg/dL 11 LDL Cholesterol 77 mg/dL 12 Laboratory 06/08/2019 [facility] Uric Acid 4.2 mg/dL Low 4.4- 7.6 13 test finding [address] [place] [address] [phone] BUN 05/03/2019 N2N/CCD Import BUN 28 mg/dL High 6-24 mg/dL Creatinine 05/03/2019 N2N/CCD Import Creatinine 1.26 High 0.67-1.17 mg/dL mg/dL GFR Afr Amer 05/03/2019 N2N/CCD Import GFR Afr Amer 69.3 _ >60 GFR Non Afr 05/03/2019 N2N/CCD Import GFR Non Afr 57.3 _ >60 Amer Amer 1 Standard intensity warfarin therapeutic range: 2.0-3.0 High intensity warfarin therapeutic range: 2.5-3.5 2 [id number] 3 SEE RESULT BELOW Name: REGINO KNOWLES : [address]: Emmanuel Lanier MD Acct: [id number] Unit: [id number] AGE: 64 Location: [facility] Re07/15/19 SEX: M Status: REG REF SPEC: [id number] OLVIN: 07/15/[address] [facility] [address]: Emmanuel Lanier MD REQ: [id number] RECD: 07/15/19 STATUS: SOUT _ ORDERED: LEVEL 4, IMMUNO-FIRST, IMMUNO-ADDL, IMMUNO-MULTI COMMENTS: [id number] FINAL DIAGNOSIS Skin, bridge of nose, biopsy: [...] CONTINUED ON NEXT PAGE DEPARTMENT OF PATHOLOGY, [address] [place] [address] Shon Berumen M.D. Director [facility] # [id number] GROSS DESCRIPTION The specimen is received in [...] 1154 END OF REPORT DEPARTMENT OF PATHOLOGY, [address] [place] [address] Shon Berumen M.D. Director [facility] # [id number] 4 SEE RESULT BELOW Name: REGINO KNOWLES : [address]: Amrit Ochoa DO Acct: [id number] Unit: [id number] AGE: 64 Location: ENDO Re06/14/19 SEX: M Status: DEP REF SPEC: [id number] OLVIN: 06/14/19- SUBM DR: Amrit Ochoa DO REQ: [id number] RECD: 06/14/19 STATUS: KENNETH JONES DR: Shraddha [...] CONTINUED ON NEXT PAGE DEPARTMENT OF PATHOLOGY, [address] [place] [address] Shon Berumen M.D. Director [facility] # [id number] PRE-OPERATIVE DIAGNOSIS 1) Rule out metaplasia; 2) [...] 1204 END OF REPORT DEPARTMENT OF PATHOLOGY, [address] [place] [address] Shon Berumen M.D. Director [facility] # [id number] 5 SEE RESULT BELOW Name: ELENIREGINO Saab : [address]: Amrit Ochoa DO Acct: [id number] Unit: [id number] AGE: 64 Location: ENDO Re06/14/19 SEX: M Status: REG REF SPEC: [id number] OLVIN: 06/14/[address] [facility] [address]: Amrit Ochoa DO REQ: [id number] RECD: 06/14/19 STATUS: URI JONES DR: Shraddha Hubbard MD _ SOURCE: GAS ANTRUM SPDESC: ORDERED: Clotest Procedure Result Reported Site Clotest Final 06/15/19722 ML Clotest Negative * ML - Main Lab . END OF REPORT DEPARTMENT OF PATHOLOGY, [address] [place] [address] Shon Berumen M.D. Director [facility] # [id number] 6 7 Because ethnic data is not always readily [...] 15-29 5 Kidney failure <15 (or dialysis) 8 Therapeutic target for the treatment of diabetes mellitus patients is <7% HBA1C, and in selective patients <6.0%. Please refer to [place] Diabetes Association diabetic care guidelines for further information. 9 Desirable: <150 Borderline High: 150-199 High: 200-499 Very High: >500 10 Desirable: <200 Borderline High: 200-239 High: >239 11 Low: <40 Desirable: 40-60 High: >60 12 Desirable: <100 Near Optimal: 100-129 Borderline High: 130-159 High: 160-189 Very High: >189 13 FASTING Procedures Date Code Description Status 07/15/2019 96623 Shave Skin Lesion <.6CM Face/Ear/Eyelid/Nose/Lip/Mucous Completed Membr Medical Devices Description No Information Available Encounters Type Date Location Provider Dx Diagnosis Office Visit 07/12/2019 3:30p [facility] Emmanuel Lanier MD R05 Cough D48.5 Neoplasm of uncertain behavior of skin Z68.28 Body mass index (BMI) 28.0-28.9, adult Office Visit 06/10/2019 3:30p [facility] Kervin Hubbard MD I10 Essential ( primary) hypertension R73.03 Prediabetes Z23 Encounter for immunization Z68.28 Body mass index (BMI) 28.0-28.9, adult Assessments Date Code Description Provider 07/15/2019 D48.5 Neoplasm of uncertain behavior of [...] Shraddha Hubbard MD Plan of Treatment Future Appointment(s):10/05/2019 11:00 am - Emmanuel Lanier MD at [facility]2018 - Emmanuel Lanier, MDD48.5 Neoplasm of uncertain behavior of skin Functional Status Description No Information Available Mental Status Description No Information Available Referrals Description No Information Available
--- OUTSIDE RECORDS SUMMARY | 2019-11-06 14:01 | XMS REPORT | Continuity of Care Document ---
:1955 External Reference #:[id number] Author Name Dana Moseley NP (transmitted by agent of provider Katya Naranjo) Address [address] [place] [address] Care Team Providers Name Role Phone Emmanuel Cunningham MD - Neurology Care Team Information Timber Buyer [phone] Walt Umaña MD - Accounts Receivable Manager Care Team Information Timber Buyer [phone] Kvng Del Toro MD - Care Team Information [employer]ber Buyer [phone] Otolaryngology Isaiah Sarah MD - Cardiovascular Care Team Information Timber [employer]er Disease Emmanuel Lanier MD - Family Medicine Care Team Information Timber Buyer [phone] Problems Active Problems Provider Date Atrial fibrillation [...] Consumes 1 glass of wine per day ETOH Use Occasionally consumes liquor Tobacco Use Start: Unknown Patient is a former quit 1995 End: Unknown smoker Recreational Drug Use Denies Drug Use Smoking Status Reviewed: 09/19/19 Patient is a former quit 1995 smoker Exercise Type/Frequency Exercises sporadically uses elliptical machine, and weight machine for about 40 minutes per workout, about 2 x per week Allergies, Adverse Reactions, Alerts Active Allergies Reaction Severity Comments Date NKDA 06/30/2005 Animal Dander 03/22/2019 Dust 03/22/2019 Pollen 03/22/2019 Mildew 03/22/2019 Medications Active Medications SIG Qnty Indications Ordering Provider Date Amlodipine Besylate 1 by mouth every 90tabs Isaiah Riley 08/09/2019 day Ravindra Sarah 2.5mg Tablets Eliquis 1 by mouth twice 180tabs Z79.01 Dana Moseley NP 07/22/2019 5mg Tablets a day Wixela Inhub Inhale 1 puff By Unknown 03/18/2019 Mouth Twice 250-50mcg/Dose Daily Aerosol Nebulizer twice daily as Isaiah Riley 10/26/2018 [...] Allopurinol 1 po qd 30tabs 274.9 Kyle Barkre 01/23/2010 300mg Ravindra Rucker,FACP Tablets Krill Oil once daily Unknown 1000mg Capsules Zyrtec Allergy take one tablet Unknown 10mg by mouth in the Capsules evening (in Spring/fall) History Medications Lisinopril 1 by mouth every I10 Dana Moseley, SMALL ANIMAL VETERINARIAN 08/09/2019 - 30mg Tablets day 08/09/2019 Amlodipine Besylate 1 by mouth [facility] SMALL ANIMAL VETERINARIAN 07/07/2019 - 5mg day 08/09/2019 Tablets Amlodipine Besylate 1 by mouth daily 90tabs I10 [facility] SMALL ANIMAL VETERINARIAN 2018 - 5mg 07/21/2019 Tablets Lisinopril 1 by mouth every 30tabs I10 [facility] ANIMAL VETERINARIAN 06/06/2019 - 40mg Tablets day 08/09/2019 Lisinopril 1 by mouth every 30tabs I10 Danazuri Moseley, SMALL ANIMAL VETERINARIAN 05/20/2019 - 30mg Tablets day 06/06/2019 Immunizations CPT Code Status Date Vaccine Lot # [id number] Given 08/02/2010 Influenza Virus 3Yrs & Over 36538 Given 09/10/2009 Influenza Virus 3Yrs & Over [id number] 42344 Given 07/27/2009 Influenza Virus Vaccine, Pandemic Formulation [id number] 86750 Given 07/27/2009 Administration Swine Flu Shot 07037 Given 08/02/2008 Influenza Virus 3Yrs & Over [id number] 91025 Given 02/25/2008 Hepatitis A Vaccine Adult Dosage [id number] 56745 Given 08/23/2007 Influenza Virus 3Yrs & Over 45815 Given 08/23/2007 Influenza Virus 3Yrs & Over Vital Signs Date Vital Result Comment 09/19/2019 1:49pm Height 62 inches 5'2" Weight 163.25 lb with shoes Heart Rate 76 /min left radial BP Systolic Sitting 122 mmHg Lue, reg cuff BP Diastolic Sitting 84 mmHg Lue, reg cuff BP Systolic Standing 120 mmHg Lue, reg cuff BP Diastolic Standing 80 mmHg Lue, reg cuff BMI (Body Mass Index) 29.9 kg/m2 Ejection Fraction 55%-60% stress echo 02/09/19 08/09/2019 12:20pm Height 62 inches 5'2" Weight 163.00 lb with shoes Heart Rate 74 /min radial,regular BP Systolic Sitting 98 mmHg Ra,reg cuff BP Diastolic Sitting 62 mmHg Ra,reg cuff BP Systolic Standing 112 mmHg Ra, reg cuff BP Diastolic Standing 70 mmHg Ra, reg cuff BP Systolic Lying Down 101 mmHg la repeat sitting BP Diastolic Lying Down 64 mmHg la repeat sitting BMI (Body Mass Index) 29.8 kg/m2 Ejection Fraction 55%-60% stress echo 02/09/19 Results Test Acquired Date Facility Test Result H/L Range Note CBC Auto 07/29/2019 [facility] White Blood 5.9 10^3/uL Normal 3.5-10.[address] [place] [address] [phone] Red Blood Count 4.80 10^6/uL Normal 4.18-5.48 [...] % Nucleated Red Blood Cells % 0.0 Inr/Protime 07/29/2019 [facility] Inr 1.31 High 0.82-1.[address] [place] [address] [phone] 1 Standard intensity warfarin therapeutic range: 2.0-3.0 High intensity warfarin therapeutic range: 2.5-3.5 Procedures Date Code Description Status 08/09/2019 82203 EKG Tracing & Interpretation Completed 03/24/2019 55249 Holter Monitor Review (24 hr)dr cortez & orap only Completed 03/17/2019 32204698 Colonoscopy Completed 12/25/2008 [id number] Colonoscopy Completed Medical Devices Description No Information Available Encounters Type Date Location Provider Dx Diagnosis Office Visit 08/09/2019 [facility] Isaiah Riley I10 Essential ( primary) 12:40p Ravindra Sarah hypertension I48.91 Unspecified atrial fibrillation 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 E78.5 Hyperlipidemia, unspecified Office Visit 07/22/2019 2:30p [facility] Dana I48.91 Unspecified atrial Thuman, SMALL ANIMAL VETERINARIAN fibrillation I10 Essential (primary) hypertension E78.5 Hyperlipidemia, unspecified 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 Office Visit 07/07/2019 1:00p [facility] Dana Thuman, I10 Essential (primary) SMALL ANIMAL VETERINARIAN hypertension I48.91 Unspecified atrial fibrillation E78.5 Hyperlipidemia, unspecified Office Visit 06/06/2019 8:30a [facility] Nurse Visit I10 Essential (primary) cc hypertension Office Visit 05/20/2019 10:00a [facility] Nurse Visit I10 Essential (primary) cc hypertension Office Visit 03/22/2019 2:00p [facility] Dana I48.0 Paroxysmal atrial Of Nursing Clinical Director Thuman, SMALL ANIMAL VETERINARIAN fibrillation I10 Essential (primary) hypertension E78.5 Hyperlipidemia, unspecified Assessments Date Code Description Provider 09/19/2019 I10 Essential (primary) hypertension Dana Moseley, SMALL ANIMAL VETERINARIAN 09/19/2019 I48.21 Permanent atrial fibrillation Dana Moseley SMALL ANIMAL VETERINARIAN 09/19/2019 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 Dana Moseley SMALL ANIMAL VETERINARIAN 09/19/2019 R19.5 Other fecal abnormalities Dana Moseley SMALL ANIMAL VETERINARIAN 08/09/2019 I10 Essential (primary) hypertension Isaiah Sarah M.D. 08/09/2019 I48.91 Unspecified atrial fibrillation Isaiah Sarah M.D. 08/09/2019 Z79.01 halfway (current) use of anticoagulants Isaiah Sarah M.D. 08/09/2019 E78.5 Hyperlipidemia, unspecified Isaiah Sarah M.D. 07/22/2019 I48.91 Unspecified atrial fibrillation Dana Thuman, SMALL ANIMAL VETERINARIAN 07/22/2019 I10 Essential (primary) hypertension Dana Thuman, SMALL ANIMAL VETERINARIAN 07/22/2019 E78.5 Hyperlipidemia, unspecified Dana Thuman, SMALL ANIMAL VETERINARIAN 07/22/2019 Z79.01 halfway (current) use of anticoagulants Dana Thuman, SMALL ANIMAL VETERINARIAN 07/07/2019 I10 Essential (primary) hypertension Dana Thuman, SMALL ANIMAL VETERINARIAN 07/07/2019 I48.91 Unspecified atrial fibrillation Dana Thuman, SMALL ANIMAL VETERINARIAN 07/07/2019 E78.5 Hyperlipidemia, unspecified Dana Thuman, SMALL ANIMAL VETERINARIAN 06/06/2019 I10 Essential (primary) hypertension Nurse Visit cc 05/20/2019 I10 Essential (primary) hypertension Nurse Visit cc 03/24/2019 I48.2 Chronic atrial fibrillation Isaiah Sarah M.D. 03/22/2019 I48.0 Paroxysmal atrial fibrillation Dana Moseley, SMALL ANIMAL VETERINARIAN 03/22/2019 I10 Essential (primary) hypertension Dana Moseley, CHANO 03/22/2019 E78.5 Hyperlipidemia, unspecified Dana Moseley NP Plan of Treatment Future Appointment(s):02/20/2020 1:20 pm - [facility] - Dana Moseley NPI10 Essential (primary) hypertensionRecommendations:Your blood pressure is controlled. Between now and when you see Dr. Sarah in 6 months if you notice your home readings are trending up or consistently> 140/90 please call us so I can address your medications.I48.21 Permanent atrial fibrillationFollow up:follow up in [address] Sarah.Z79.01 halfway (current) use of ilhczmmsnpnbciF21.5 Other fecal abnormalities Functional Status Description No Information Available Mental Status Description No Information Available Referrals Description No Information Available
--- OUTSIDE RECORDS SUMMARY | 2019-11-06 14:01 | XMS REPORT | Continuity of Care Document ---
:1955 External Reference #:[id number] Author Name Emmanuel Lanier MD Address [address] [place] [address] Problems Active Problems Provider Date Adult health [...] CPT Code Status Date Vaccine Lot # [id number] Given 06/10/2019 Flu High Dose [id number] 13795 Given 09/21/2018 Prevnar 13 68729 Given 06/17/2018 Shingrix - Shingles vaccine, Herpes Zoster 42490 Given 04/13/2018 Shingrix - Shingles vaccine, Herpes Zoster 07527 Given 01/05/2018 Shingrix - Shingles vaccine, Herpes Zoster 30699 Given 12/10/2015 Pneumovax - for >=2years - PPSV23 89176 Given 05/04/2013 Zoster Shingles Vaccine For Subcutaneous Injection 03907 Given 05/04/2013 Tdap - Boostrix/Adacel Vital Signs [...] Facility Test Result H/L Range Note Xray 10/19/2019 [facility] Ultrasound <pending> [address] [place] [address] Limited [phone] O P: 10/18/2019 [facility] O P: SEE RESULT 1 Giardia/Cryptosp [address] Giardia/Crypt[place] [address] por Screen [phone] Ova & Parasites 10/18/2019 [facility] Ova Parasite, See Comment 2, [address] Microscopy, [place] [address] [phone] CFM Urinalysis 10/17/2019 [facility] Ua PH Test 7.0 ( )- - Strip Ua WBC neg Ua Protein neg Urine Glucose QL neg Urine Ketones QL Test Strip neg Urine Bilirubin TTL QL T-Strip neg Urine Urobilinogen QN TS 1.0 Urine Nitrite QL TS neg Ua Occult Blood neg CBC Auto 09/26/2019 [facility] White Blood 6.8 10^3/uL Normal 3.5-10.[address] [place] [address] [phone] Red Blood Count 4.88 10^6/uL Normal 4.18-5.48 [...] Blood Cells % 0.1 CBC Auto 07/29/2019 [facility] White Blood 5.9 10^3/uL Normal 3.5-10.[address] [place] [address] [phone] Red Blood Count 4.80 10^6/uL Normal 4.18-5.48 [...] Red Blood Cells % 0.0 INR/Protime 07/29/2019 [facility] INR 1.31 High 0.82-1.[address] [place] [address] [phone] Laboratory 07/15/2019 [facility] Surgical SEE 5, 6 test finding [address] [place] [address] BELOW [phone] Xray 07/12/2019 [facility] Ultrasound <pending [address] Abdominal > [place] [address] Limited [phone] Laboratory 06/14/2019 [facility] Clotest SEE 7 test finding [address] [place] [address] BELOW [phone] Laboratory 06/14/2019 [facility] Surgical SEE 8 test finding [address] [place] [address] BELOW [phone] Lipid Profile 06/08/2019 [facility] Triglycerides 125 9, (Trig/Chol/HDL [address] mg/dL 10 ) [place] [address] [phone] Cholesterol 154 mg/dL 11 HDL Cholesterol 51.6 mg/dL 12 LDL Cholesterol 77 mg/dL 13 Laboratory test 06/08/2019 [facility] Uric Acid 4.2 mg/dL Low 4.4-7.[address] [place] [address] [phone] Laboratory test 06/08/2019 [facility] Hemoglobin A1c 5.8 % High 4.0-5.[address] (Glyco HGB) [place] [address] [phone] Comp Metabolic 06/08/2019 [facility] Sodium 139 Normal 135- [address] mmol/[place] [address] [phone] Chloride 103 mmol/L Normal 101-111 Co2 Carbon [...] Egfr Non- 57.8 >60 Egfr 69.9 >60 16 Potassium 5.3 mmol/L High 3.5-5.0 Anion Gap 4 mmol/L Normal 2-11 BUN 05/03/2019 N2N/CCD Import BUN 28 mg/dL High 6-24 mg/dL Creatinine 05/03/2019 N2N/CCD Import Creatinine 1.26 mg/dL High 0.67- 1.17 mg/dL GFR Afr Amer 05/03/2019 N2N/CCD Import GFR Afr Amer 69.3 _ >60 GFR Non Afr Amer 05/03/2019 N2N/CCD Import GFR Non Afr Amer 57.3 _ >60 1 SEE RESULT BELOW Name: REGINO KNOWLES : [address]: Emmanuel Lanier MD Acct: [id number] Unit: [id number] AGE: 64 Location: [facility] Re10/18/19 SEX: M Status: REG REF SPEC: [id number] OLVIN: 10/18/[address]: Emmanuel Lanier MD REQ: [id number] RECD: 10/18/19 STATUS: COMP _ SOURCE: STOOL SPDESC: ORDERED: O P: Giar/Crypt Procedure Result Reported Site O P: Giardia/Cryptospor Screen Final 10/19/19- 1339 ML Organism 1 Neg Cryptosporidium/Giardia Giardia and cryptosporidium antigen testing performed by enzyme immunoassay. Specimen has been forwarded to reference lab for microscopic parasite examination. TEST LIMITATIONS: As with all diagnostic procedures, the results obtained should be used in conjunction with other clinical information available to the physician, including confirmation by another method. Negative results can occur in samples containing antigen below lower limits of detection of the assay. One negative specimen does not rule out the possibility of a parasitic infection. To improve detection it is recommended that three specimens be collected on separate days over a period of not more than seven days. The use of colonic washes, aspirates or other diluted sample types has not been established and could affect the performance of the assay. Stool samples contaminated with an oily or particulate base (eg. Barium, mineral oil etc.) could interfere with the test and are not recommended. CONTINUED ON NEXT PAGE DEPARTMENT OF PATHOLOGY, [facility] [employer] [place] [address] Shon Berumen M.D. Director [facility] # [id number] Specimen: [id number] Collected: 10/18/19 Received: 10/18/19 (Continued) Procedure Result Reported Site O P: Giardia/Cryptospor Screen Final (continued) 10/19/19- 1339 * ML - Main Lab . END OF REPORT DEPARTMENT OF PATHOLOGY, [facility] [employer] [place], [place] [address] Shon Berumen M.D. Director [facility] # [id number] 2 [id number] SOURCE: STOOL OVA AND PARASITE, MICROSCOPY, F FINAL No parasites seen. Cryptosporidium, Cyclospora, and microsporidia are not readily detected by this method. Single negative specimen does not rule out parasitic infection. Test Performed by: [facility] - [address] [address] [employer]: Ming Casillas M.D. Ph.D.; CLIA# [id number] 4 Standard intensity warfarin therapeutic range: 2.0-3.0 High intensity warfarin therapeutic range: 2.5-3.5 5 [id number] 6 SEE RESULT BELOW Name: REGINO KNOWLES Kaiser : [address]: Emmanuel Lanier MD Acct: [id number] Unit: [id number] AGE: 64 Location: [facility] Re07/15/19 SEX: M Status: REG REF SPEC: [id number] OLVIN: 07/15/19-[address]: Emmanuel Lanier MD REQ: [id number] RECD: 07/15/19 STATUS: SOUT _ ORDERED: LEVEL 4, IMMUNO-FIRST, IMMUNO-ADDL, IMMUNO-MULTI COMMENTS: [id number] FINAL DIAGNOSIS Skin, bridge of nose, biopsy: [...] CONTINUED ON NEXT PAGE DEPARTMENT OF PATHOLOGY, [address] [place] [address] Shon Berumen M.D. Director [facility] # [id number] GROSS DESCRIPTION The specimen is received in [...] 1154 END OF REPORT DEPARTMENT OF PATHOLOGY, [address] [place] [address] Shon Berumen M.D. Director [facility] # [id number] 7 SEE RESULT BELOW Name: REGINO KNOWLSE : [address]: Amrit Ochoa DO Acct: [id number] Unit: [id number] AGE: 64 Location: [facility] Re06/14/19 SEX: M Status: REG REF SPEC: [id number] OLVIN: 06/14/[address]: Amrit Ochoa DO REQ: [id number] RECD: 06/14/19 STATUS: URI JONES DR: Shraddha Hubbard MD _ SOURCE: [facility]AS [facility]: ORDERED: Clotest Procedure Result Reported Site Clotest Final 06/15/19722 ML Clotest Negative * ML - Main Lab . END OF REPORT DEPARTMENT OF PATHOLOGY, [address] [place] [address] Shon Berumen M.D. Director [facility] # [id number] 8 SEE RESULT BELOW Name: REGINO KNOWLES : [address]: Amrit Ochoa DO Acct: [id number] Unit: [id number] AGE: 64 Location: [facility] Re06/14/19 SEX: M Status: DEP REF SPEC: [id number] OLVIN: 06/14/19- DR: Amrit Ochoa DO REQ: [id number] RECD: 06/14/19 STATUS: KENNETH JONES DR: Shraddha [...] CONTINUED ON NEXT PAGE DEPARTMENT OF PATHOLOGY, [facility] [employer] [place], [place] [address] Shon Berumen M.D. Director [facility] # [id number] PRE-OPERATIVE DIAGNOSIS 1) Rule out metaplasia; 2) [...] 1204 END OF REPORT DEPARTMENT OF PATHOLOGY, [facility] [employer] [place], [place] [address] Shon Berumen M.D. Director [facility] # [id number] 9 FASTING 10 Desirable: <150 Borderline High: 150-199 High: 200-499 Very High: >500 11 Desirable: <200 Borderline High: 200-239 High: >239 12 Low: <40 Desirable: 40-60 High: >60 13 Desirable: <100 Near Optimal: 100-129 Borderline High: 130-159 High: 160-189 Very High: >189 14 FASTING 15 Therapeutic target for the treatment of diabetes mellitus patients is <7% HBA1C, and in selective patients <6.0%. Please refer to [place] [employer] diabetic care guidelines for further information. 16 Because ethnic data is not always readily [...] dialysis) Procedures Date Code Description Status 10/17/2019 01204 Brief Emotional/Behav Assessment W/ Scoring Doc Per Completed Standard Inst 07/15/2019 81256 Shave Skin Lesion <.6CM Face/Ear/Eyelid/Nose/Lip/Mucous Completed Membr Medical Devices Description No Information Available Encounters Type Date Location Provider Dx Diagnosis Office Visit 10/17/2019 1:15p ANDER Lanier MD M54.5 Low back pain Office Visit 07/12/2019 3:30p ANDER Lanier MD R05 Cough D48.5 Neoplasm of uncertain behavior of skin Z68.28 Body mass index (BMI) 28.0-28.9, adult Office Visit 06/10/2019 3:30p [facility] Main Shraddha Hubbard MD I10 Essential ( primary) hypertension [...] 9:30 am - Emmanuel Lanier MD at [facility] Main2019 - Emmanuel Lanier MDM54.5 Low back pain Functional Status Description No Information Available Mental Status Description No Information Available Referrals Description No Information Available
--- OUTSIDE RECORDS SUMMARY | 2019-11-06 14:01 | XMS REPORT | Continuity of Care Document ---
:1955 External Reference #:[id number] Author Name Jhon Degroot M.D. Address 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/2014 Social History Type Date Description Comments Sex Unknown ETOH Use Occasionally consumes alcohol Tobacco Use Start: Unknown Patient has never smoked Smoking Status Reviewed: 09/21/19 Patient has never smoked Allergies, Adverse Reactions, Alerts Description No Known Drug Allergies Medications Active Medications SIG Qnty Indications Ordering Provider Date Allopurinol Unknown Tablets Singulair Unknown Atorvastatin Calcium Violette MOREIRA, [facility] 20mg Tablets Diltiazem HCL ER Violette MOREIRA, [facility] Coated Beads 120mg Caps ER 24HR Metoprolol Succinate Violette MOREIRA, [facility] ER 50mg Tablets ER 24HR Pantoprazole Sodium Violette MOREIRA, [facility] 40mg Tablets DR Stephanie Oakes MD, [facility] 250-50mcg/Dose Aerosol Proair HFA Use 1-2 puff(S) Unknown 108(90Base) Inhalation Given mcg/Act Aerosol Every 4 To 6 Hours as Needed. Eliquis Unknown 5mg Tablets Amlodipine Besylate Unknown 5mg Tablets Rosuvastatin Calcium Unknown 20mg Tablets Immunizations Description No Information Available Vital Signs Date Vital Result Comment 09/22/2019 9:23am Intraocular Pressure Right Eye 16 mmHg Intraocular Pressure Left Eye 17 mmHg Cornea Thickness Left Eye 509 m Cornea Thickness Right Eye 511 m Pachymetry adjusted IOP Right Eye +2 Pachymetry adjusted IOP Left Eye +2 08/01/2019 1:25pm Intraocular Pressure Right Eye 15 mmHg Intraocular Pressure Left Eye 17 mmHg Results Description No Information Available Procedures Date Code Description Status 09/22/2019 86399 Visual Field Exam Extended, Unilateral Or Bilateral Completed 09/22/2019 02370 Eye Exam Est Intermediate Completed 09/22/2019 16820 Corneal Pachymetry, Unilateral/Bilateral Completed 08/01/2019 64386 Oct, Optic Nerve Completed 08/01/2019 73336 Visual Field Exam Extended, Unilateral Or Bilateral Completed 07/25/2019 77754 Fundus Photography W/Interpretation & Report Completed 07/25/2019 57060 Ophthalmoscopy Initial Completed 07/25/2019 52914 Eye Exam Est Comprehensive Completed Medical Devices Description No Information Available Encounters Type Date Location Provider Dx Diagnosis Office Visit 08/01/2019 Main Office Jhon Degroot H40.013 Open angle with 1:00p M.D. borderline findings, low risk, bilateral H25.013 Cortical age-related cataract, bilateral Assessments Date Code Description Provider 09/22/2019 H25.013 Cortical age-related cataract, bilateral Jhon Degroot M.D. 09/22/2019 H40.013 Open angle with borderline findings, thierno Degroot M.D. risk, bilateral 08/01/2019 H40.013 Open angle with borderline findings, low Jhon Degroot M.D. risk, bilateral 08/01/2019 H25.013 Cortical age-related cataract, bilateral Jhon Degroot M.D. 07/25/2019 H40.013 Open angle with borderline findings, thierno Degroot M.D. risk, bilateral 07/25/2019 H25.012 Cortical age-related cataract, left eye Jhon Degroot M.D. 07/25/2019 H02.31 Blepharochalasis right upper eyelid Jhon Degroot M.D. 07/25/2019 H02.34 Blepharochalasis left upper eyelid Jhon Degroot M.D. 07/25/2019 H02.32 Blepharochalasis right lower eyelid Jhon Degroot M.D. 07/25/2019 H02.35 Blepharochalasis left lower eyelid Jhon Degroot M.D. Plan of Treatment 09/22/2019 - Jhon Degroot M.D.H25.013 Cortical age-related cataract, bilateralComments:Risks, benefits and alternatives to cataract extraction and posterior chamber intraocular lens placement explained, understood and accepted including but not limited to: re-operation, infection, retinal detachment, glaucoma, bleeding in the eye, retained lens material, corneal or macular edema , need for glasses, poor vision and other.Follow up:Schedule patient for the next available cataract surgery date.H40.013 Open angle with borderline findings , low risk, bilateral Functional Status Description No Information Available Mental Status Description No Information Available Referrals Description No Information Available
--- OUTSIDE RECORDS SUMMARY | 2019-11-06 14:01 | XMS REPORT | Continuity of Care Document ---
:1955 External Reference #:[id number] Author Name Emmanuel Lanier MD Address [address] [place] [address] Problems Active Problems Provider Date Adult health [...] CPT Code Status Date Vaccine Lot # [id number] Given 06/10/2019 Flu High Dose [id number] 63197 Given 09/21/2018 Prevnar 13 28942 Given 06/17/2018 Shingrix - Shingles vaccine, Herpes Zoster 21934 Given 04/13/2018 Shingrix - Shingles vaccine, Herpes Zoster 00743 Given 01/05/2018 Shingrix - Shingles vaccine, Herpes Zoster 57110 Given 12/10/2015 Pneumovax - for >=2years - PPSV23 17021 Given 05/04/2013 Zoster Shingles Vaccine For Subcutaneous Injection 76633 Given 05/04/2013 Tdap - Boostrix/Adacel Vital Signs [...] Test Result H/L Range Note Xray 10/19/2019 [facility] Ultrasound <pending> [address] [place] [address] Limited [phone] O P: 10/18/2019 [facility] O P: SEE RESULT 1 Giardia/Cryptosp [address] Giardia/[place] [address] por Screen [phone] Ova & Parasites 10/18/2019 [facility] Ova Parasite, See Comment 2, [address] Microscopy, [place] [address] [phone] CFM Urinalysis 10/17/2019 [facility] Ua PH Test 7.0 ( )- - Strip Ua WBC neg Ua Protein neg Urine Glucose QL neg Urine Ketones QL Test Strip neg Urine Bilirubin TTL QL T-Strip neg Urine Urobilinogen QN TS 1.0 Urine Nitrite QL TS neg Ua Occult Blood neg CBC Auto 09/26/2019 [facility] White Blood 6.8 10^3/uL Normal 3.5-10.[address] [place] [address] [phone] Red Blood Count 4.88 10^6/uL Normal 4.18-5.48 [...] Blood Cells % 0.1 CBC Auto 07/29/2019 [facility] White Blood 5.9 10^3/uL Normal 3.5-10.[address] [place] [address] [phone] Red Blood Count 4.80 10^6/uL Normal 4.18-5.48 [...] Red Blood Cells % 0.0 INR/Protime 07/29/2019 [facility] INR 1.31 High 0.82-1.[address] [place] [address] [phone] Laboratory 07/15/2019 [facility] Surgical SEE 5, 6 test finding [address] [place] [address] BELOW [phone] Xray 07/12/2019 [facility] Ultrasound <pending [address] Abdominal > [place] [address] Limited [phone] Laboratory 06/14/2019 [facility] Clotest SEE 7 test finding [address] [place] [address] BELOW [phone] Laboratory 06/14/2019 [facility] Surgical SEE 8 test finding [address] [place] [address] BELOW [phone] Lipid Profile 06/08/2019 [facility] Triglycerides 125 9, (Trig/Chol/HDL [address] mg/dL 10 ) [place] [address] [phone] Cholesterol 154 mg/dL 11 HDL Cholesterol 51.6 mg/dL 12 LDL Cholesterol 77 mg/dL 13 Laboratory test 06/08/2019 [facility] Uric Acid 4.2 mg/dL Low 4.4-7.6 [address] [place] [address] [phone] Laboratory test 06/08/2019 [facility] Hemoglobin A1c 5.8 % High 4.0-5.[address] (Glyco HGB) [place] [address] [phone] Comp Metabolic 06/08/2019 [facility] Sodium 139 Normal 135- [address] mmol/[place] [address] [phone] Chloride 103 mmol/L Normal 101-111 Co2 Carbon [...] [address]: Emmanuel Lanier MD Acct: [id number] Unit: [id number] AGE: 64 Location: [facility] Re10/18/19 SEX: M Status: REG REF SPEC: [id number] OLVIN: 10/18/[address]: Emmanuel Lanier MD REQ: [id number] RECD: 10/18/19 STATUS: COMP _ SOURCE: STOOL [...] CONTINUED ON NEXT PAGE DEPARTMENT OF PATHOLOGY, [facility] [employer] [place] [address] Shon Berumen M.D. Director [facility] # [id number] Specimen: [id number] Collected: 10/18/19 Received: 10/18/19 (Continued) Procedure Result Reported Site O P: Giardia/Cryptospor Screen Final (continued) 10/19/19- 1339 * ML - Main Lab . END OF REPORT DEPARTMENT OF PATHOLOGY, [facility] [employer] [place], [place] [address] Shon Berumen M.D. Director [facility] # [id number] 2 [id number] SOURCE: STOOL OVA AND PARASITE, MICROSCOPY, F FINAL No parasites seen. Cryptosporidium, Cyclospora, and microsporidia are not readily detected by this method. Single negative specimen does not rule out parasitic infection. Test Performed by: [facility] - [address] [address] [employer] Supervisor: Ming Casillas M.D. Ph.D.; CLIA# [id number] 4 Standard intensity warfarin therapeutic range: 2.0-3.0 High intensity warfarin therapeutic range: 2.5-3.5 5 [id number] 6 SEE RESULT BELOW Name: REGINO KNOWLES Kaiser : [address]: Emmanuel Lanier MD Acct: [id number] Unit: [id number] AGE: 64 Location: [facility] Re07/15/19 SEX: M Status: REG REF SPEC: [id number] OLVIN: 07/15/19-[address]: Emmanuel Lanier MD REQ: [id number] RECD: 07/15/19 STATUS: SOUT _ ORDERED: LEVEL 4, IMMUNO-FIRST, IMMUNO-ADDL, IMMUNO-MULTI COMMENTS: [id number] FINAL DIAGNOSIS Skin, bridge of nose, biopsy: [...] ON NEXT PAGE DEPARTMENT OF PATHOLOGY, [address] [place] [address] Shon Berumen M.D. Director [facility] # [id number] GROSS DESCRIPTION The specimen is received in [...] 1154 END OF REPORT DEPARTMENT OF PATHOLOGY, [address] [place] [address] Shon Berumen M.D. Director [facility] # [id number] 7 SEE RESULT BELOW Name: REGINO KNOWLES : [address]: Amrit Ochoa DO Acct: [id number] Unit: [id number] AGE: 64 Location: [facility] Re06/14/19 SEX: M Status: REG REF SPEC: [id number] OLVIN: 06/14/[address]: Amrit Ochoa DO REQ: [id number] RECD: 06/14/19 STATUS: URI JONES DR: Shraddha Hubbard MD _ SOURCE: GAS [facility]UM [facility]: ORDERED: Clotest Procedure Result Reported Site Clotest Final 06/15/19722 ML Clotest Negative * ML - Main Lab . END OF REPORT DEPARTMENT OF PATHOLOGY, [address] [place] [address] Shon Berumen M.D. Director [facility] # [id number] 8 SEE RESULT BELOW Name: REGINO KNOWLES : [address]: Amrit Ochoa DO Acct: [id number] Unit: [id number] AGE: 64 Location: ENDO Re06/14/19 SEX: M Status: DEP REF SPEC: [id number] OLVIN: 06/14/19- DR: Amrit Ochoa DO REQ: [id number] RECD: 06/14/19 STATUS: KENNETH JONES DR: Shraddha [...] CONTINUED ON NEXT PAGE DEPARTMENT OF PATHOLOGY, [facility] [employer] [place], [place] [address] Shon Berumen M.D. Director [facility] # [id number] PRE-OPERATIVE DIAGNOSIS 1) Rule out metaplasia; 2) [...] 1204 END OF REPORT DEPARTMENT OF PATHOLOGY, [facility] [employer] [place], [place] [address] Shon Berumen M.D. Director [facility] # [id number] 9 FASTING 10 Desirable: <150 Borderline High: [...] in selective patients <6.0%. Please refer to [place] [employer] diabetic care guidelines for further [...] dialysis) Procedures Date Code Description Status 10/17/2019 67615 Brief Emotional/Behav Assessment W/ Scoring Doc Per Completed Standard Inst 07/15/2019 46954 Shave Skin Lesion <.6CM Face/Ear/Eyelid/Nose/Lip/Mucous Completed Membr [...] 9:30 am - Emmanuel Lanier MD at [facility] Main2019 - Emmanuel Lanier MDM54.5 Low back pain Functional Status Description No Information Available Mental Status Description No Information Available Referrals Description No Information Available
--- OUTSIDE RECORDS SUMMARY | 2019-11-06 14:01 | XMS REPORT | Continuity of Care Document ---
:1955 External Reference #:[id number] Author Name Emmanuel Lanier MD (transmitted by agent of provider Anya Lamar) Address [address] [place] [address] Problems Active Problems Provider Date Adult health [...] CPT Code Status Date Vaccine Lot # [id number] Given 06/10/2019 Flu High Dose [id number] Given 09/21/2018 Prevnar 13 60919 Given 06/17/2018 Shingrix - Shingles vaccine, Herpes Zoster 01459 Given 04/13/2018 Shingrix - Shingles vaccine, Herpes Zoster 31103 Given 01/05/2018 Shingrix - Shingles vaccine, Herpes Zoster 57113 Given 12/10/2015 Pneumovax - for >=2years - PPSV23 73077 Given 05/04/2013 Zoster Shingles Vaccine For Subcutaneous Injection 31918 Given 05/04/2013 Tdap - Boostrix/Adacel Vital Signs [...] Result H/L Range Note CFM Urinalysis 10/17/2019 [facility] Ua PH Test 7.0 ( )- - Strip Ua WBC neg Ua Protein neg Urine Glucose QL neg Urine Ketones QL Test Strip neg Urine Bilirubin TTL QL T-Strip neg Urine Urobilinogen QN TS 1.0 Urine Nitrite QL TS neg Ua Occult Blood neg CBC Auto 09/26/2019 [facility] White Blood 6.8 10^3/uL Normal 3.5-10.[address] [place] [address] [phone] Red Blood Count 4.88 10^6/uL Normal 4.18-5.48 [...] Blood Cells % 0.1 CBC Auto 07/29/2019 [facility] White Blood 5.9 10^3/uL Normal 3.5-10.[address] [place] [address] [phone] Red Blood Count 4.80 10^6/uL Normal 4.18-5.48 [...] Red Blood Cells % 0.0 INR/Protime 07/29/2019 [facility] INR 1.31 High 0.82-1.[address] [place] [address] [phone] Laboratory 07/15/2019 [facility] Surgical SEE 2, test finding [address] Pathology RESULT 3 [place] [address] BELOW [phone] Xray 07/15/2019 [facility] Ultrasound <pending [address] Retroperitoneal > [place] [address] Limited [phone] Xray 07/12/2019 [facility] Ultrasound <pending [address] Abdominal Limited > [place] [address] [phone] Laboratory 06/14/2019 [facility] Clotest SEE 4 test finding [address] [place] [address] BELOW [phone] Laboratory 06/14/2019 [facility] Surgical SEE 5 test finding [address] [place] [address] BELOW [phone] Comp 06/08/2019 [facility] Sodium 139 Normal 135-145 [address] mmol/[place] [address] [phone] Chloride 103 mmol/L Normal 101-111 Co2 Carbon [...] 4 mmol/L Normal 2-11 Laboratory test 06/08/2019 [facility] Hemoglobin A1c 5.8 % High 4.0-5.[address] (Glyco HGB) [place] [address] [phone] Lipid Profile 06/08/2019 [facility] Triglycerides 125 9 (Trig/Chol/HDL) [address] mg/[place] [address] [phone] Cholesterol 154 mg/dL 10 HDL Cholesterol 51.6 mg/dL 11 LDL Cholesterol 77 mg/dL 12 Laboratory 06/08/2019 [facility] Uric Acid 4.2 mg/dL Low 4.4- 7.6 13 test finding [address] [place] [address] [phone] BUN 05/03/2019 N2N/CCD Import BUN 28 mg/dL High 6-24 mg/dL Creatinine 05/03/2019 N2N/CCD Import Creatinine 1.26 High 0.67-1.17 mg/dL mg/dL GFR Afr Amer 05/03/2019 N2N/CCD Import GFR Afr Amer 69.3 _ >60 GFR Non Afr 05/03/2019 N2N/CCD Import GFR Non Afr 57.3 _ >60 Amer Amer 1 Standard intensity warfarin therapeutic range: 2.0-3.0 High intensity warfarin therapeutic range: 2.5-3.5 2 [id number] 3 SEE RESULT BELOW Name: REGINO KNOWLES Kaiser : [address]: Emmanuel Lanier MD Acct: [id number] Unit: [id number] AGE: 64 Location: [facility] Re07/15/19 SEX: M Status: REG REF SPEC: [id number] OLVIN: 07/15/19-[address] [facility] [address]: Emmanuel Lanier MD REQ: [id number] RECD: 07/15/19 STATUS: SOUT _ ORDERED: LEVEL 4, IMMUNO-FIRST, IMMUNO-ADDL, IMMUNO-MULTI COMMENTS: [id number] FINAL DIAGNOSIS Skin, bridge of nose, biopsy: [...] CONTINUED ON NEXT PAGE DEPARTMENT OF PATHOLOGY, [address] [place] [address] Shon Berumen M.D. Director [facility] # [id number] GROSS DESCRIPTION The specimen is received in formalin with no source identified, with a requisition labeled, Skin Bridge of Nose, and consists of a 0.7 x 0.5 cm yellow-white ovoid skin shave with a 0.2 x 0.2 cm blue-black irregular bordered macule. The specimen is inked, serially sectioned and submitted entirely in one cassette. Signed by and Reported on: Rosalee Santoyo MD 07/19/19 1929 END OF REPORT DEPARTMENT OF PATHOLOGY, [address] [place] [address] Shon Berumen M.D. Director [facility] # [id number] 4 SEE RESULT BELOW Name: REGINO KNOWLES : [address]: Amrit Ochoa DO Acct: [id number] Unit: [id number] AGE: 64 Location: ENDO Re06/14/19 SEX: M Status: REG REF SPEC: [id number] OLVIN: 06/14/[address] [facility] [address]: Amrit Ochoa DO REQ: [id number] RECD: 06/14/19 STATUS: URI JONES DR: Shraddha Hubbard MD _ SOURCE: GAS ANTRUM SPDESC: ORDERED: Clotest Procedure Result Reported Site Clotest Final 06/15/19- 722 ML Clotest Negative * ML - Main Lab . END OF REPORT DEPARTMENT OF PATHOLOGY, [address] [place] [address] Shon Berumen M.D. Director [facility] # [id number] 5 SEE RESULT BELOW Name: REGINO KNOWLES : [address]: Amrit Ochoa DO Acct: [id number] Unit: [id number] AGE: 64 Location: ENDO Re06/14/19 SEX: M Status: DEP REF SPEC: [id number] OLVIN: 06/14/19- SUBM DR: Amrit Ochoa DO REQ: [id number] RECD: 06/14/19 STATUS: KENNETH JONES DR: Shraddha [...] CONTINUED ON NEXT PAGE DEPARTMENT OF PATHOLOGY, [address] [place] [address] Shon Berumen M.D. Director [facility] # [id number] PRE-OPERATIVE DIAGNOSIS 1) Rule out metaplasia; 2) [...] 1204 END OF REPORT DEPARTMENT OF PATHOLOGY, [address] [place] [address] Shon Berumen M.D. Director [facility] # [id number] 6 FASTING 7 Because ethnic data is not always [...] in selective patients <6.0%. Please refer to [place] [employer] diabetic care guidelines for further information. 9 Desirable: <150 Borderline High: 150-199 High: 200-499 Very High: >500 10 Desirable: <200 Borderline High: 200-239 High: >239 11 Low: <40 Desirable: 40-60 High: >60 12 Desirable: <100 Near Optimal: 100-129 Borderline High: 130-159 High: 160-189 Very High: >189 13 FASTING Procedures Date Code Description Status 10/17/2019 96912 Brief Emotional/Behav Assessment W/ Scoring Doc Per Completed Standard Inst 07/15/2019 04266 Shave Skin Lesion <.6CM Face/Ear/Eyelid/Nose/Lip/Mucous Completed Membr Medical Devices Description No Information Available Encounters Type Date Location Provider Dx Diagnosis Office Visit 07/12/2019 3:30p [facility] Kervin Lanier MD R05 Cough D48.5 Neoplasm of uncertain behavior of skin Z68.28 Body mass index (BMI) 28.0-28.9, adult Office Visit 06/10/2019 3:30p [facility] Kervin Hubbard MD I10 Essential ( primary) [...] 9:30 am - Emmanuel Lanier MD at [facility] 2019 - Emmanuel Lanier, MDM54.5 Low back pain Functional Status Description No Information Available Mental Status Description No Information Available Referrals Description No Information Available
--- OUTSIDE RECORDS SUMMARY | 2019-11-06 14:01 | XMS REPORT | Continuity of Care Document ---
:1955 External Reference #:[id number] Author Name Shraddha Hubbard MD Address [address] [place] [address] Problems Active Problems Provider Date Adult health examination Onset: 09/21/2018 Atrial fibrillation Onset: 04/04/2011 Tubular adenoma of colon Onset: 03/18/2019 Chronic kidney disease Onset: 01/09/2018 Essential hypertension Onset: 12/04/2015 Prediabetes Emmanuel Lanier MD Onset: 07/12/2019 Social History Type Date Description Comments Sex Unknown Tobacco Use Start: Unknown End: Unknown Patient is a former smoker quit 1991 Smoking Status Reviewed: 11/03/19 Patient is a former smoker quit 1991 Allergies, Adverse Reactions, Alerts Active Allergies Reaction [...] Mouth Tablets Every Day History Medications Furosemide Take 1 Tablet By 30tabs Shraddha Hubbard MD 08/01/2019 - 20mg Mouth Daily 10/31/2019 Tablets Furosemide 1 every day by 30tabs I10 Shraddha Hubbard MD 06/10/2019 - 20mg mouth 07/10/2019 Tablets Immunizations CPT Code Status Date Vaccine Lot # [id number] Given 06/10/2019 Flu High Dose [id number] 37748 Given 09/21/2018 Prevnar 13 73386 Given 06/17/2018 Shingrix - Shingles vaccine, Herpes Zoster 22156 Given 04/13/2018 Shingrix - Shingles vaccine, Herpes Zoster 42476 Given 01/05/2018 Shingrix - Shingles vaccine, Herpes Zoster 28158 Given 12/10/2015 Pneumovax - for >=2years - PPSV23 84915 Given 05/04/2013 Zoster Shingles Vaccine For Subcutaneous Injection 59689 Given 05/04/2013 Tdap - Boostrix/Adacel Vital Signs Date Vital Result Comment 11/03/2019 4:18pm BP Systolic 120 mmHg BP Diastolic 82 mmHg Height 62.50 inches 5'2.50" Weight 162.00 lb Heart Rate 60 /min Body Temperature 96.4 F O2 % BldC Oximetry 99 % BMI (Body Mass Index) 29.2 kg/m2 Right Visual Acuity Distance 20/50 Left Visual Acuity Distance 20/30 Both Visual Acuity Distance 20/40 10/17/2019 1:27pm BP Systolic 120 mmHg BP Diastolic 80 mmHg Height 62.25 inches 5'2.25" Weight 162.00 lb Heart Rate 97 /min Body Temperature 96.4 F O2 % BldC Oximetry 97 % BMI (Body Mass Index) 29.4 kg/m2 Results Test Acquired Date Facility Test Result H/L Range Note O P: 10/18/2019 [facility] O P: SEE RESULT 1 Giardia/Cryptospo [address] Giardia/Cry[place] [address] tospor [phone] Screen Ova & Parasites 10/18/2019 [facility] Ova See Comment 2, [address] Parasite, [place] [address] Microscopy, [phone] F CFM Urinalysis 10/17/2019 [facility] Ua PH Test 7.0 ( )- - Strip Ua WBC neg Ua Protein neg Urine Glucose QL neg Urine Ketones QL Test Strip neg Urine Bilirubin TTL QL T-Strip neg Urine Urobilinogen QN TS 1.0 Urine Nitrite QL TS neg Ua Occult Blood neg CBC Auto 09/26/2019 [facility] White Blood 6.8 10^3/uL Normal 3.5-10.[address] [place] [address] [phone] Red Blood Count 4.88 10^6/uL Normal 4.18-5.48 [...] Blood Cells % 0.1 CBC Auto 07/29/2019 [facility] White Blood 5.9 10^3/uL Normal 3.5-10.[address] [place] [address] [phone] Red Blood Count 4.80 10^6/uL Normal 4.18-5.48 [...] Red Blood Cells % 0.0 INR/Protime 07/29/2019 [facility] INR 1.31 High 0.82-1.[address] [place] [address] [phone] Laboratory 07/15/2019 [facility] Surgical SEE 5, 6 test finding [address] [place] [address] BELOW [phone] Xray 07/12/2019 [facility] Ultrasound <pending [address] Abdominal > [place] [address] Limited [phone] Laboratory 06/14/2019 [facility] Clotest SEE 7 test finding [address] [place] [address] BELOW [phone] Laboratory 06/14/2019 [facility] Surgical SEE 8 test finding [address] [place] [address] BELOW [phone] Lipid Profile 06/08/2019 [facility] Triglycerides 125 9, (Trig/Chol/HDL [address] mg/dL 10 ) [place] [address] [phone] Cholesterol 154 mg/dL 11 HDL Cholesterol 51.6 mg/dL 12 LDL Cholesterol 77 mg/dL 13 Laboratory test 06/08/2019 [facility] Uric Acid 4.2 mg/dL Low 4.4-7.[address] [place] [address] [phone] Laboratory test 06/08/2019 [facility] Hemoglobin A1c 5.8 % High 4.0-5.[address] (Glyco HGB) [place] [address] [phone] Comp Metabolic 06/08/2019 [facility] Sodium 139 Normal 135- [address] mmol/[place] [address] [phone] Chloride 103 mmol/L Normal 101-111 Co2 Carbon [...] 3.5-5.0 Anion Gap 4 mmol/L Normal 2-11 1 SEE RESULT BELOW Name: REGINO KNOWLES : [address]: Emmanuel Lanier MD Acct: [id number] Unit: [id number] AGE: 64 Location: [facility] Re10/18/19 SEX: M Status: REG REF SPEC: [id number] OLVIN: 10/18/[address]: Emmanuel Lanier MD REQ: [id number] RECD: 10/18/19 STATUS: COMP _ SOURCE: STOOL [...] ON NEXT PAGE DEPARTMENT OF PATHOLOGY, [address] [place] [address] Shon Berumen M.D. Director [facility] # [id number] Specimen: [id number] Collected: 10/18/19 Received: 10/18/19-1256 (Continued) Procedure Result Reported Site O P: Giardia/Cryptospor Screen Final (continued) 10/19/19- 1339 * - [facility] . END OF REPORT DEPARTMENT OF PATHOLOGY, [address] [place] [address] Shon Berumen M.D. Director [facility] # [id number] 2 [id number] 3 SOURCE: STOOL OVA AND PARASITE, MICROSCOPY, F FINAL No parasites seen. Cryptosporidium, Cyclospora, and microsporidia are not readily detected by this method. Single negative specimen does not rule out parasitic infection. Test Performed by: [address] [address] Pega Developer: Ming Casillas M.D. Ph.D.; IA# [id number] 4 Standard intensity warfarin therapeutic range: 2.0-3.0 High intensity warfarin therapeutic range: 2.5-3.5 5 [id number] 6 SEE RESULT BELOW Name: REGINO KNOWLES : [address]: Emmanuel Lanier MD Acct: [id number] Unit: [id number] AGE: 64 Location: [facility] Re07/15/19 SEX: M Status: REG REF SPEC: [id number] OLVIN: 07/15/19-[address]: Emmanuel Lanier MD REQ: [id number] RECD: 07/15/19 STATUS: SOUT _ ORDERED: LEVEL 4, IMMUNO-FIRST, IMMUNO-ADDL, IMMUNO-MULTI COMMENTS: [id number] FINAL DIAGNOSIS Skin, bridge of nose, biopsy: [...] CONTINUED ON NEXT PAGE DEPARTMENT OF PATHOLOGY, [address] [place] [address] Shon Berumen M.D. Director [facility] # [id number] GROSS DESCRIPTION The specimen is received in [...] 1154 END OF REPORT DEPARTMENT OF PATHOLOGY, [address] [place] [address] Shon Berumen M.D. Director [facility] # [id number] 7 SEE RESULT BELOW Name: REGINO KNOWLES Kaiser : [address]: Amrit Ochoa DO Acct: [id number] Unit: [id number] AGE: 64 Location: ENDO Re06/14/19 SEX: M Status: REG REF SPEC: [id number] OLVIN: 06/14/1944 [facility] DR: Amrit Ochoa DO REQ: [id number] RECD: 06/14/19 STATUS: URI JONES DR: Shraddha Hubbard MD _ SOURCE: GAS ANTRUM SPDESC: ORDERED: Clotest Procedure Result Reported Site Clotest Final 06/15/19722 ML Clotest Negative * ML - Main Lab . END OF REPORT DEPARTMENT OF PATHOLOGY, [address] [place] [address] Shon Berumen M.D. Director [facility] # [id number] 8 SEE RESULT BELOW Name: REGINO KNOWLES : [address]: Amrit Ochoa DO Acct: [id number] Unit: [id number] AGE: 64 Location: ENDO Re06/14/19 SEX: M Status: DEP REF SPEC: [id number] OLVIN: 06/14/19- DR: Amrit Ochoa DO REQ: [id number] RECD: 06/14/19 STATUS: KENNETH JONES DR: Shraddha [...] ON NEXT PAGE DEPARTMENT OF PATHOLOGY, [address] [place] [address] Shon Berumen M.D. Director [facility] # [id number] PRE-OPERATIVE DIAGNOSIS 1) Rule out metaplasia; 2) [...] 1204 END OF REPORT DEPARTMENT OF PATHOLOGY, [facility] [place], [place] [address] Shon Berumen M.D. Director [place] # [id number] 9 FASTING 10 Desirable: <150 Borderline High: [...] in selective patients <6.0%. Please refer to [place] [employer] diabetic care guidelines for further [...] dialysis) Procedures Date Code Description Status 10/17/2019 21034 Brief Emotional/Behav Assessment W/ Scoring Doc Per Completed Standard Inst 07/15/2019 77075 Shave Skin Lesion <.6CM Face/Ear/Eyelid/Nose/Lip/Mucous Completed Membr Medical Devices Description No Information Available Encounters Type Date Location Provider Dx Diagnosis Office Visit 11/03/2019 [facility] Kervin Hubbard MD H00.013 Hordeolum externum 4:15p right eye, unspecified eyelid Office Visit 10/17/2019 [facility] Kervin Lanier MD M54.5 Low back pain 1:15p Z13.31 Encounter for screening for depression Office Visit 07/12/2019 3:30p [facility] Lanier MD R05 Cough D48.5 Neoplasm of uncertain behavior of skin Z68.28 Body mass index (BMI) 28.0-28.9, adult Office Visit 06/10/2019 3:30p ANDER Hubbard MD I10 Essential ( primary) hypertension R73.03 Prediabetes Z23 Encounter for immunization Z68.28 Body mass index (BMI) 28.0-28.9, adult Assessments Date Code Description Provider 11/03/2019 H00.013 Hordeolum externum right eye, unspecified Shraddha Hubbard MD eyelid 10/17/2019 M54.5 Low back pain Emmanuel Lanier MD 10/17/2019 Z13.31 Encounter for screening for depression Emmanuel Lanier MD 07/15/2019 D48.5 Neoplasm of [...] Shraddha Hubbard MD Plan of Treatment Future Appointment(s):11/21/2019 2:15 pm - Shraddha Hubbard MD at [facility] 2019 9:30 am - Emmanuel Lanier MD at [facility] 11/03/2019 - Shraddha Hubbard MDH00.013 Hordeolum externum right eye, unspecified eyelid Functional Status Description No Information Available Mental Status Description No Information Available Referrals Description No Information Available
[2019-11-06 14:37] LABS: ABS Eosinophils 0.2 10^3/ul (0-0.6); ABS Lymphocytes 1.1 10^3/ul (1.0-4.8); ABS Monocytes 0.5 10^3/ul (0-0.8); Hematocrit 48 % (42-52); Hemoglobin 16.1 g/dL (14.0-18.0); Lymphocyte % 19.2 %; Mean Corpuscular HGB Conc 34 g/dL (31-36); Mean Corpuscular Hemoglobin 31 pg (27-31); Mean Corpuscular Volume 92 fL (80-94); Nucleated Red Blood Cells % 0.1; Platelet Count 205 10^3/uL (150-450); Red Blood Count 5.23 10^6 /uL (4.18-5.48); Red Cell Distribution Width 14 % (10-15); White Blood Count 5.8 10^3/uL (3.5-10.8)
[2019-11-06 14:55] LABS: Albumin 4.7 g/dL (3.2-5.2); Albumin/Globulin Ratio 1.7 (1-3); BUN/Creatinine Ratio 20.2 (8-20); Calcium 9.9 mg/dL (8.6-10.3); EGFR African American 86.5 (>60); EGFR Non-African American 71.5 (>60); Globulin 2.7 g/dL (2-4); Potassium 4.5 mmol/L (3.5-5.0); Total Bilirubin 0.4 mg/dL (0.2-1.0); Total Protein 7.4 g/dL (6.4-8.9)
[2019-11-06 14:57] LABS: Troponin I 0.01 ng/mL (<0.03)
[2019-11-06] MEDS ORDERED: Meclizine TAB* 12.5 MG PO ONE (15:33)
--- NOTE | 2019-11-06 15:35 | ED ---
Dizziness - HPI Summary HPI Summary: This patient is a 64 year old male presenting to [facility] with a chief complaint of dizziness since this morning. He states when he walks he loses balance toward the right side. He denies any weakness in the extremities, besides the right hand at baseline due to carpal tunnel. He denies chest pain, palpitations , shortness of breath, nausea, vomiting, and diarrhea. He has a Hx of atrial fibrillation. He is on Eliquis and Metropolol since July. Albuterol HFA INHALER* [Ventolin HFA Inhaler*] 1 puff INH Q4H PRN 03/09/19 [ History Confirmed 07/15/19] Allopurinol TAB* [Zyloprim 100 MG TAB*] 100 mg PO DAILY 03/09/19 [History Confirmed 07/15/19] Atorvastatin Calcium [Lipitor] 40 mg PO DAILY 03/09/19 [History Confirmed ] Fluticasone-Salmeterol 100-50* [Advair Diskus 100-50*] 1 puff INH BID PRN [History Confirmed 07/15/19] Metoprolol Succinate XL TAB* [Toprol XL TAB*] 25 mg PO DAILY 03/09/19 [History Confirmed 07/15/19] Pantoprazole Sodium 20 mg PO DAILY 03/09/19 [History Confirmed 07/15/19] dilTIAZem ER 360 MG 24HR (NF) [Diltiazem ER 360 mg 24Hr] 360 mg PO DAILY [History Confirmed 07/15/19] Krill/[place]-3/Dha/Epa/Lipids [Krill Oil 300 mg Softgel] 2 cap PO DAILY 03/17/19 [History Confirmed 07/15/19] Lisinopril TAB* [Prinivil TAB 10 MG*] 40 mg PO DAILY 06/14/19 [History Confirmed 07/15/19] Aspirin TAB* [Aspirin 325 MG TAB*] 1 tab PO DAILY WITH MEAL 07/15/19 [History Confirmed 07/15/19] - History Of Current Complaint Chief Complaint: EDDizziness Stated Complaint: DIZZY PER PT Time Seen by Provider: 11/06/19 15:22 Hx Obtained From: Patient Character: Dizzy Associated Signs And Symptoms: Positive: Unsteady Gait - Allergies/Home Medications Allergies/Adverse Reactions: Allergies Allergy/AdvReac Type Severity Reaction Status Date / Time No Known Allergies Allergy Verified 11/06/19 13:31 Home Medications: Home Medications Albuterol HFA INHALER* [Ventolin HFA Inhaler*] 1 puff INH Q4H PRN 03/09/19 [ History Confirmed 07/15/19] Allopurinol TAB* [Zyloprim 100 MG TAB*] 100 mg PO DAILY 03/09/19 [History Confirmed 07/15/19] Atorvastatin Calcium [Lipitor] 40 mg PO DAILY 03/09/19 [History Confirmed ] Fluticasone-Salmeterol 100-50* [Advair Diskus 100-50*] 1 puff INH BID PRN [History Confirmed 07/15/19] Metoprolol Succinate XL TAB* [Toprol XL TAB*] 25 mg PO DAILY 03/09/19 [History Confirmed 07/15/19] Pantoprazole Sodium 20 mg PO DAILY 03/09/19 [History Confirmed 07/15/19] dilTIAZem ER 360 MG 24HR (NF) 360 mg PO DAILY 03/09/19 [History Confirmed ] Krill/[place]-3/Dha/Epa/Lipids [Krill Oil 300 mg Softgel] 2 cap PO DAILY 03/17/19 [History Confirmed 07/15/19] Lisinopril TAB* [Prinivil TAB 10 MG*] 40 mg PO DAILY 06/14/19 [History Confirmed 07/15/19] Aspirin TAB* [Aspirin 325 MG TAB*] 1 tab PO DAILY WITH MEAL 07/15/19 [History Confirmed 07/15/19] Meclizine TAB* [Antivert 12.5 TAB*] 25 mg PO TID PRN #30 tab 11/06/19 [Rx] PMH/Surg Hx/FS Hx/Imm Hx Previously Healthy: Yes - aaaVITAL SIGNS: [id number] Endocrine/Hematology History: Denies: Hx Diabetes - a, Hx Thyroid Disease Cardiovascular History: Reports: Hx Hypertension Respiratory History: Reports: Hx Asthma Denies: Hx Chronic Obstructive Pulmonary Disease (COPD) GI History: Denies: Hx Ulcer - Surgical History Surgery Procedure, Year, and Place: nasal biopsy - Immunization History Date of Influenza Vaccine: 05/2019 Infectious Disease History: No Infectious Disease History: Denies: Hx Clostridium Difficile, Hx Hepatitis, Hx Human Immunodeficiency Virus (HIV), Hx of Known/Suspected MRSA, Hx Shingles, Hx Tuberculosis, Hx Known/ Suspected VRE, Hx Known/Suspected VRSA, History Other Infectious Disease, Traveled Outside the [place] in Last 30 Days - Family History Known Family History: Positive: None, Non-Contributory Negative: Blood Disorder - Social History Alcohol Use: Daily Substance Use Type: Reports: None Smoking Status (MU): Former Smoker Review of Systems Negative: Palpitations, Chest Pain Negative: Shortness Of Breath Negative: Vomiting, Diarrhea, Nausea Neurological/Mental Status: Other - Dizziness/loss of balance Negative: Weakness All Other Systems Reviewed And Are Negative: Yes Physical Exam - Summary Physical Exam Summary: VITAL SIGNS: Reviewed. GENERAL: Patient is a well-developed and nourished MALE who is lying comfortable in the stretcher. Patient is not in any acute respiratory distress. HEAD AND FACE: No signs of trauma. No ecchymosis, hematomas or skull depressions. No sinus tenderness. EYES: PERRLA, EOMI x 2, No injected conjunctiva, no nystagmus. EARS: Hearing grossly intact. Ear canals and tympanic membranes are within normal limits. MOUTH: Oropharynx within normal limits. NECK: Supple, trachea is midline, no adenopathy, no JVD, no carotid bruit, no c- spine tenderness, neck with full ROM. CHEST: Symmetric, no tenderness at palpation. LUNGS: Clear to auscultation bilaterally. No wheezing or crackles. CVS: Regular rate and rhythm, S1 and S2 present, no murmurs or gallops appreciated. ABDOMEN: Soft, non-tender. No signs of distention. No rebound, no guarding, and no masses palpated. Bowel sounds are normal. EXTREMITIES: FROM in all major joints, no edema, no cyanosis or clubbing. NEURO: Alert and oriented x 3. No acute neurological deficits. Speech is normal and follows commands. SKIN: Dry and warm. Triage Information Reviewed: Yes Vital Signs On Initial Exam: Initial Vitals Temp Pulse Resp BP Pulse Ox 97.4 F 86 16 143/93 98 11/06/19 13:24 11/06/19 13:24 11/06/19 13:24 11/06/19 13:24 11/06/19 13:24 Vital Signs Reviewed: Yes Procedures - Sedation Patient Received Moderate/Deep Sedation with Procedure: No Diagnostics - Vital Signs Vital Signs Temp Pulse Resp BP Pulse Ox 11/06/19 13:24 97.4 F 86 16 143/93 98 - Laboratory Lab Results: Lab Results 11/06/19 11/06/19 Range/Units 14:21 14:21 WBC 5.8 (3.5-10.8) 10^3/uL RBC 5.23 (4.18-5.48) 10^6 /uL Hgb 16.1 (14.0-18.0) g/dL Hct 48 (42-52) % MCV 92 (80-94) fL MCH 31 (27-31) pg MCHC 34 (31-36) g/dL RDW 14 (10-15) % Plt Count 205 (150-450) 10^3/uL MPV 8.0 (7.4-10.4) fL Neut % (Auto) 69.5 % Lymph % (Auto) 19.2 % [place] % (Auto) 7.9 % Eos % (Auto) 3.0 % Baso % (Auto) 0.4 % Absolute Neuts (auto) 4.0 (1.5-7.7) 10^3/ul Absolute Lymphs (auto) 1.1 (1.0-4.8) 10^3/ul Absolute Monos (auto) 0.5 (0-0.8) 10^3/ul Absolute Eos (auto) 0.2 (0-0.6) 10^3/ul Absolute Basos (auto) 0.0 (0-0.2) 10^3/ul Absolute Nucleated RBC 0.0 10^3/ul Nucleated RBC % 0.1 Sodium 137 (135-145) mmol/L Potassium 4.5 (3.5-5.0) mmol/L Chloride 102 (101-111) mmol/L Carbon Dioxide 29 (22-32) mmol/L Anion Gap 6 (2-11) mmol/L BUN 21 (6-24) mg/dL Creatinine 1.04 (0.67-1.17) mg/dL Est GFR ( Amer) 86.5 (>60) Est GFR (Non-Af Amer) 71.5 (>60) BUN/Creatinine Ratio 20.2 H (8-20) Glucose 120 H (70-100) mg/dL Calcium 9.9 (8.6-10.3) mg/dL Total Bilirubin 0.40 (0.2-1.0) mg/dL AST 31 (13-39) U/L ALT 37 (7-52) U/L Alkaline Phosphatase 70 (34-104) U/L Troponin I 0.01 (<0.03) ng/mL Total Protein 7.4 (6.4-8.9) g/dL Albumin 4.7 (3.2-5.2) g/dL Globulin 2.7 (2-4) g/dL Albumin/Globulin Ratio 1.7 (1-3) Result Diagrams: 11/06/19 14:21 11/06/19 14:21 Lab Statement: Any lab studies that have been ordered have been reviewed, and results considered in the medical decision making process. - Radiology CXR Radiology Interpretation Completed By: Radiologist Summary of Radiographic Findings: Similar appearance of mild cardiomegaly relative to the prior chest x-ray without radiographically apparent acute cardiopulmonary abnormality. ED Provider has reviewed this report. - CT Brain CT Interpretation Completed By: Radiologist Summary of CT Findings: 1. No CT apparent acute intracranial abnormality. 2. At the medial and posterior aspect of the right cerebellar fossa there is a fluid density cyst measuring 1.8 x 2.4 x 3.2 cm without pathologic displacement of the cerebellum that is unchagned from the January 23, 2010 MRI the brain indicating a benign etiology. ED Provider has reviewed this report. - EKG 1711 Cardiac Rate: NL - 85 BPM EKG Rhythm: Atrial Fibrillation Summary of EKG Findings: No ST elevations. ED Physician has reviewed and intepreted this EKG. Re-Evaluation - Re-Evaluation First Eval Re-Evaluation Time: 18:27 Change: Improved Comment: Patient feeling better, symptoms resolved. Dizzy Course/Dx - Course Assessment/Plan: This patient is a 64 year old male presenting to [facility] with a chief complaint of dizziness since this morning. He states when he walks he loses balance toward the right side. He denies any weakness in the extremities, besides the right hand at baseline due to carpal tunnel. He denies chest pain, palpitations, shortness of breath, nausea, vomiting, and diarrhea. He has a Hx of atrial fibrillation. He is on Eliquis and Metoprolol since July. In the ED course the patient was placed in a electrical supervisor, IV access was obtained, IV fluids started. He was given Meclizine for dizziness. Blood test w/o a significant abnormality except for glucose of 120. CXR IMPRESSION: SIMILAR APPEARANCE OF MILD CARDIOMEGALY RELATIVE TO THE PRIOR CHEST X-RAY WITHOUT. RADIOGRAPHICALLY APPARENT ACUTE CARDIOPULMONARY ABNORMALITY. Head CT IMPRESSION: 1. No CT apparent acute intracranial abnormality. 2. At the medial and posterior aspect of the right cerebellar fossa there is a fluid. density cyst measuring 1.8 x 2.4 x 3.2 cm without pathologic displacement of the. cerebellum that is unchanged from the January 23, 2010 MRI the brain indicating a benign etiology. After the patient was given the medicine the patients symptoms are resolved. At this point, I discussed all the findings and test results with the patient. Patient was instructed to return to the emergency room immediately if any of the symptoms return or worsen.Plan of care was discussed with the patient and the patient understands and agrees. All questions were answered at patient satisfaction. Patient understands and agrees. Neurological exam before discharge: Patient is alert and oriented x 3. No acute neurological deficits. Patient's vital signs are stable. Patient is to follow up with CPP in the next 2 3 days. They understand and agree. The plan of care was discussed with the patient and the patient understands and agrees with the plan of care. All questions were answered at patient satisfaction. There were no further complaints or concerns. - Diagnoses Provider Diagnoses: Vertigo Discharge ED - Sign-Out/Discharge Documenting (check all that apply): Patient Departure - Discharge - Discharge Plan Condition: Stable Disposition: HOME Prescriptions: Meclizine TAB* [Antivert 12.5 TAB*] 25 mg PO TID PRN #30 tab PRN Reason: Vertigo Patient Education Materials: Vertigo (ED) Referrals: Emmanuel Lanier MD [Primary Care Provider] - 3 Days Additional Instructions: Return to ED with new or worsening symptoms. - Billing Disposition and Condition Condition: STABLE Disposition: Home - Attestation Statements Document Initiated by Scribe: Yes Documenting Scribe: Gulshan Soto Provider For Whom Scribe is Documenting (Include Credential): Nestor Gregory MD Scribe Attestation: IGulshan, scribed for Nestor Gregory MD on 11/06/19 at 2105. Scribe Documentation Reviewed: Yes Provider Attestation: The documentation as recorded by the scribe, Gulshan Soto accurately reflects the service I personally performed and the decisions made by me, Nestor Gregory MD Status of Scribe Document: Viewed
[2019-11-06 16:54] LABS: Influenza A Molecular Negative (Negative); Influenza B Molecular Negative (Negative)
[2019-11-06 18:51] VITALS: BP 134/96
== END 2019-11-06 18:49 | disposition home or self-care (01) ==
LOC: ED 13:23
DX: R42 Dizziness and giddiness (principal); R26.81 Unsteadiness on feet; I48.91 Unspecified atrial fibrillation; G93.0 Cerebral cysts; I10 Essential (primary) hypertension; J45.909 Unspecified asthma, uncomplicated; Z79.01 Long term (current) use of anticoagulants; Z79.82 Long term (current) use of aspirin; Z79.51 Long term (current) use of inhaled steroids; Z87.891 Personal history of nicotine dependence; Z79.899 Other long term (current) drug therapy
CPT/HCPCS: 36415; 70450; 71046; 80053; 84484; 85025; 93005; 99283; A9270-GY

== ENCOUNTER 2021-11-04 07:48 | Inpatient (IN) ==
[2021-11-04] MEDS ORDERED: NS 0.9% 1000 ml BAG 1,000 ML IV ONE (08:21)
[2021-11-04 08:43] LABS: ABS Eosinophils 0.1 10^3/ul (0-0.6); ABS Monocytes 0.3 10^3/ul (0-0.8); ABS Neutrophils 5.7 10^3/ul (1.5-7.7); Eosinophil % 1.4 %; Hematocrit 44 % (42-52); Hemoglobin 14.8 g/dL (14.0-18.0); Lymphocyte % 14.2 %; Mean Corpuscular HGB Conc 34 g/dL (31-36); Mean Corpuscular Hemoglobin 30 pg (27-31); Mean Corpuscular Volume 89 fL (80-94); Mean Platelet Volume 7.9 fL (7.4-10.4); Nucleated Red Blood Cells % 0.1; Platelet Count 175 10^3/uL (150-450); Red Blood Count 4.95 10^6 /uL (4.18-5.48); Red Cell Distribution Width 13 % (10-15); White Blood Count 7.2 10^3/uL (3.5-10.8)
[2021-11-04 09:02] LABS: ALT 21 U/L (7-52); Albumin/Globulin Ratio 1.7 (1-3); Alkaline Phosphatase 72 U/L (35-149); Blood Urea Nitrogen 15 mg/dL (6-24); CO2 Carbon Dioxide 29 mmol/L (22-32); Chloride 104 mmol/L (101-111); Globulin 2.3 g/dL (2-4); Glucose 102 mg/dL (70-100); Sodium 138 mmol/L (135-145); Total Protein 6.3 g/dL (6.4-8.9); eGFR CKD-EPI 73.1 (>60)
[2021-11-04 09:06] LABS: Anion Gap 5 mmol/L (2-11)
[2021-11-04] MEDS ORDERED: Prothrombin Complex Conc. DOSE = Units Factor IX (nine) IV SLOW PU ONE (09:26)
[2021-11-04] MEDS: niCARdipine 0.1MG/ML IVPREMIX 20 MG/200 ML BAG IV SCH ×2 (09:52→14:55)
[2021-11-04] MEDS ORDERED: levETIRAcetam IV 1,500 MG in NS 0.9% 100 ml BAG 100 ML IVPB ONE (10:37)
[2021-11-04] MEDS ORDERED: Midazolam 5 mg/ml concentrated 5 mg/ml 1 ml VIAL ONE (10:49)
[2021-11-04] MEDS ORDERED: LORazepam 2 mg VIAL 1 ml ONE (10:49)
[2021-11-04] MEDS ORDERED: Midazolam 5 mg/5 ml VIAL 1 mg/ml 5 ml VIAL (5 mg) IV SLOW PU ONE (10:49)
[2021-11-04] MEDS ORDERED: Albuterol/Ipratropium NEB.SOL (2.5/0.5 MG) 3 ML NEB.SOLN INH ONE (10:56)
[2021-11-04 12:09] LABS: Potassium Redraw 4.3 mmol/L (3.5-5.0)
[2021-11-04] MEDS ORDERED: Lorazepam PYXIS KEY PRN (12:42)
[2021-11-04] MEDS ORDERED: LORazepam 2 mg VIAL 1 ml IV PUSH ONE (12:42)
[2021-11-04 13:02] LABS: Urine Appearance Clear; Urine Bilirubin Negative (Negative); Urine Blood Negative (Negative); Urine Color Yellow; Urine Glucose Negative (Negative); Urine Ketones Negative (Negative); Urine Nitrite Negative (Negative); Urine Protein Negative (Negative); Urine Specific Gravity 1.014 (1.002-1.030); Urine Urobilinogen Negative (Negative)
[2021-11-04 16:29] LABS: Activated Partial Thrombo Time 37.2 seconds (26.0-38.0); INR 1.16 (0.86-1.15)
[2021-11-05] MEDS ORDERED: niCARdipine 0.1MG/ML IVPREMIX 20 MG/200 ML BAG IV SCH ×2 (01:38→16:17)
[2021-11-05 04:21] LABS: ABS Eosinophils 0.2 10^3/ul (0-0.6); ABS Lymphocytes 1.3 10^3/ul (1.0-4.8); ABS Monocytes 0.6 10^3/ul (0-0.8); ABS Neutrophils 4.5 10^3/ul (1.5-7.7); Hematocrit 42 % (42-52); Hemoglobin 13.9 g/dL (14.0-18.0); Lymphocyte % 19.9 %; Mean Corpuscular HGB Conc 34 g/dL (31-36); Mean Corpuscular Hemoglobin 30 pg (27-31); Mean Corpuscular Volume 88 fL (80-94); Mean Platelet Volume 7.5 fL (7.4-10.4); Platelet Count 148 10^3/uL (150-450); Red Blood Count 4.72 10^6 /uL (4.18-5.48); Red Cell Distribution Width 14 % (10-15); White Blood Count 6.6 10^3/uL (3.5-10.8)
[2021-11-05 04:49] LABS: Calcium 8.4 mg/dL (8.6-10.3); Magnesium 1.9 mg/dL (1.9-2.7); Potassium 3.7 mmol/L (3.5-5.0)
[2021-11-05 04:54] LABS: eGFR CKD-EPI 93.7 (>60)
[2021-11-05] MEDS: Mometasone/Formoter 200/5 MDI INH SCH ×2 (08:01→19:26)
[2021-11-05] MEDS ORDERED: MODAFINIL 100 MG PO SCH (11:05)
[2021-11-05] MEDS: levETIRAcetam IV 750 MG in NS 0.9% 100 ml BAG 100 ML IVPB SCH ×2 (12:53→23:44)
[2021-11-05] MEDS ORDERED: Lactated Ringers 1000 ml BAG 1,000 ML IV ONE (13:48)
[2021-11-05] MEDS ORDERED: D5NS 0.9% 1000 ml BAG 1,000 ML IV SCH (18:00)
[2021-11-06 04:56] LABS: INR 1.22 (0.86-1.15)
[2021-11-06 05:10] LABS: ABS Eosinophils 0.2 10^3/ul (0-0.6); ABS Lymphocytes 1.2 10^3/ul (1.0-4.8); ABS Monocytes 0.5 10^3/ul (0-0.8); ABS Neutrophils 3.8 10^3/ul (1.5-7.7); Eosinophil % 2.9 %; Hematocrit 41 % (42-52); Hemoglobin 13.7 g/dL (14.0-18.0); Lymphocyte % 21.6 %; Mean Corpuscular HGB Conc 34 g/dL (31-36); Mean Corpuscular Hemoglobin 30 pg (27-31); Mean Corpuscular Volume 88 fL (80-94); Mean Platelet Volume 7.7 fL (7.4-10.4); Nucleated Red Blood Cells % 0.1; Platelet Count 153 10^3/uL (150-450); Red Blood Count 4.65 10^6 /uL (4.18-5.48); Red Cell Distribution Width 14 % (10-15); White Blood Count 5.7 10^3/uL (3.5-10.8)
[2021-11-06 05:24] LABS: Calcium 8.1 mg/dL (8.6-10.3); Potassium 3.7 mmol/L (3.5-5.0); eGFR CKD-EPI 93.3 (>60)
[2021-11-06] MEDS ORDERED: Potassium Chlor 20 meq TAB.ER PO ONE (07:23)
[2021-11-06] MEDS ORDERED: Calcium Gluconate 2 GM in NS 0.9% 100 ml BAG 100 ML IV ONE (08:07)
[2021-11-06] MEDS: Mometasone/Formoter 200/5 MDI INH SCH ×2 (08:34→19:41)
[2021-11-06] MEDS ORDERED: Potassium Chloride LIQUID 20 MEQ/15 ML LIQUID PO ONE (08:46)
[2021-11-06] MEDS: Polyethylene Glycol 3350 17 GM PACKET PO SCH (09:11)
[2021-11-06] MEDS ORDERED: hydrALAZINE 20 mg/ml 1 ML Vial IV IV SLOW PU PRN ×3 (11:11→13:42)
[2021-11-06] MEDS ORDERED: hydrALAZINE 20 mg/ml 1 ML Vial IV IV SLOW PU ONE (11:12)
[2021-11-06] MEDS ORDERED: Labetalol IV 5 MG/ML 20 ml VIAL IV PUSH PRN ×2 (11:42→14:00)
[2021-11-06] MEDS: levETIRAcetam IV 750 MG in NS 0.9% 100 ml BAG 100 ML IVPB SCH ×2 (12:16→23:51)
[2021-11-07 05:39] LABS: ABS Eosinophils 0.2 10^3/ul (0-0.6); ABS Lymphocytes 1.2 10^3/ul (1.0-4.8); ABS Monocytes 0.5 10^3/ul (0-0.8); ABS Neutrophils 4.2 10^3/ul (1.5-7.7); Eosinophil % 3.4 %; Hematocrit 44 % (42-52); Hemoglobin 14.6 g/dL (14.0-18.0); Lymphocyte % 20.1 %; Mean Corpuscular HGB Conc 34 g/dL (31-36); Mean Corpuscular Hemoglobin 30 pg (27-31); Mean Corpuscular Volume 88 fL (80-94); Mean Platelet Volume 7.6 fL (7.4-10.4); Nucleated Red Blood Cells % 0.1; Platelet Count 167 10^3/uL (150-450); Red Blood Count 4.96 10^6 /uL (4.18-5.48); Red Cell Distribution Width 14 % (10-15); White Blood Count 6.2 10^3/uL (3.5-10.8)
[2021-11-07 06:19] LABS: Calcium 8.9 mg/dL (8.6-10.3); Potassium 3.9 mmol/L (3.5-5.0)
[2021-11-07] MEDS: Polyethylene Glycol 3350 17 GM PACKET PO SCH (09:09)
[2021-11-07] MEDS: Mometasone/Formoter 200/5 MDI INH SCH ×3 (09:45→21:07)
[2021-11-07] MEDS: levETIRAcetam IV 750 MG in NS 0.9% 100 ml BAG 100 ML IVPB SCH (12:20)
[2021-11-07] MEDS ORDERED: Lidocaine 2% JELLY 6 ML TOPICAL SCH (14:00)
[2021-11-07] MEDS: Albuterol HFA INHALER 8 gm MDI INH PRN (15:30)
[2021-11-08] MEDS ORDERED: levETIRAcetam IV 750 MG in NS 0.9% 100 ml BAG 100 ML IVPB SCH (02:00)
[2021-11-08] MEDS: levETIRAcetam IV 750 MG in NS 0.9% 100 ml BAG 100 ML IVPB SCH (02:03)
[2021-11-08 06:15] LABS: ABS Eosinophils 0.2 10^3/ul (0-0.6); ABS Lymphocytes 1.1 10^3/ul (1.0-4.8); ABS Monocytes 0.4 10^3/ul (0-0.8); ABS Neutrophils 3.5 10^3/ul (1.5-7.7); Eosinophil % 4.6 %; Hematocrit 42 % (42-52); Hemoglobin 14.2 g/dL (14.0-18.0); Lymphocyte % 20.8 %; Mean Corpuscular HGB Conc 34 g/dL (31-36); Mean Corpuscular Hemoglobin 30 pg (27-31); Mean Corpuscular Volume 88 fL (80-94); Mean Platelet Volume 7.5 fL (7.4-10.4); Nucleated Red Blood Cells % 0.1; Platelet Count 164 10^3/uL (150-450); Red Blood Count 4.75 10^6 /uL (4.18-5.48); Red Cell Distribution Width 13 % (10-15); White Blood Count 5.3 10^3/uL (3.5-10.8)
[2021-11-08] MEDS ORDERED: Magnesium Hydroxide LIQ 30 ML UDC PO PRN (06:31)
[2021-11-08 06:33] LABS: Calcium 8.9 mg/dL (8.6-10.3); Magnesium 1.8 mg/dL (1.9-2.7); Potassium 3.8 mmol/L (3.5-5.0)
[2021-11-08] MEDS ORDERED: Magnesium Sulfate 2 gm BAG 2 GM/50 ML BAG IVPB ONE (07:12)
[2021-11-08] MEDS ORDERED: Potassium Chlor 20 meq TAB.ER PO ONE (07:13)
[2021-11-08] MEDS: Polyethylene Glycol 3350 17 GM PACKET PO SCH (10:33)
[2021-11-08] MEDS: Mometasone/Formoter 200/5 MDI INH SCH ×2 (10:42→19:56)
[2021-11-09] MEDS: Polyethylene Glycol 3350 17 GM PACKET PO SCH (09:27)
[2021-11-09] MEDS: Mometasone/Formoter 200/5 MDI INH SCH ×2 (10:59→20:13)
[2021-11-09] MEDS: Albuterol HFA INHALER 8 gm MDI INH PRN (10:59)
[2021-11-10] MEDS: Polyethylene Glycol 3350 17 GM PACKET PO SCH (09:59)
[2021-11-10] MEDS: Mometasone/Formoter 200/5 MDI INH SCH (10:01)
[2021-11-10 11:13] VITALS: BP 109/69
== END 2021-11-10 12:30 | DRG 65 ==
LOC: ED 07:48 → SUATTDRO 21:45 → EDHOLD 21:45 → ICU 23:15 → SSU 11-06 17:33
PROVIDERS: ADMIT Internal Medicine; ATTEND Family Medicine

== ENCOUNTER 2021-11-10 08:11 | Inpatient (IN) ==
[2021-11-10] MEDS ORDERED: Al Hydrox/Mg Hydrox/Simet LIQ 30 ML UDC PO PRN (09:08)
[2021-11-10] MEDS ORDERED: Magnesium Hydroxide LIQ 30 ML UDC PO PRN (09:08)
[2021-11-10] MEDS ORDERED: Senna TAB 8.6 mg TAB PO PRN (09:08)
[2021-11-10] MEDS ORDERED: Albuterol HFA INHALER 8 gm MDI INH PRN (09:28)
[2021-11-10] MEDS ORDERED: VITAMIN E OIL TOPICAL PRN (09:32)
[2021-11-10] MEDS ORDERED: Dextran 70/Hypromellose Tears Eye Drops 15 ml BTL (for Artificials Tears) BOTH EYES PRN (09:34)
[2021-11-10] MEDS: Mometasone/Formoter 200/5 MDI INH SCH (19:35)
[2021-11-11 06:13] LABS: ABS Eosinophils 0.2 10^3/ul (0-0.6); ABS Lymphocytes 1.5 10^3/ul (1.0-4.8); ABS Monocytes 0.4 10^3/ul (0-0.8); ABS Neutrophils 3.4 10^3/ul (1.5-7.7); Eosinophil % 2.8 %; Hematocrit 44 % (42-52); Hemoglobin 14.7 g/dL (14.0-18.0); Lymphocyte % 26.7 %; Mean Corpuscular HGB Conc 33 g/dL (31-36); Mean Corpuscular Hemoglobin 30 pg (27-31); Mean Corpuscular Volume 90 fL (80-94); Mean Platelet Volume 7.5 fL (7.4-10.4); Nucleated Red Blood Cells % 0.1; Platelet Count 197 10^3/uL (150-450); Red Blood Count 4.96 10^6 /uL (4.18-5.48); Red Cell Distribution Width 14 % (10-15); White Blood Count 5.5 10^3/uL (3.5-10.8)
[2021-11-11 06:38] LABS: Albumin 4.1 g/dL (3.2-5.2); Albumin/Globulin Ratio 1.9 (1-3); Calcium 9.3 mg/dL (8.6-10.3); Globulin 2.2 g/dL (2-4); Potassium 3.9 mmol/L (3.5-5.0); Total Bilirubin 0.5 mg/dL (0.2-1.0); Total Protein 6.3 g/dL (6.4-8.9)
[2021-11-11] MEDS: Mometasone/Formoter 200/5 MDI INH SCH ×2 (09:33→22:56)
[2021-11-11] MEDS: Polyethylene Glycol 3350 17 GM PACKET PO SCH (09:34)
[2021-11-11] MEDS: METRONIDAZOLE TOPICAL SCH (09:39)
[2021-11-11] MEDS: BETAMETHASONE 0.05% TOPICAL PRN ×3 (11:00→20:27)
[2021-11-12] MEDS: Mometasone/Formoter 200/5 MDI INH SCH ×2 (11:49→20:09)
[2021-11-12] MEDS: METRONIDAZOLE TOPICAL SCH (12:32)
[2021-11-12] MEDS: Polyethylene Glycol 3350 17 GM PACKET PO SCH (12:33)
[2021-11-13] MEDS: Mometasone/Formoter 200/5 MDI INH SCH ×2 (08:07→20:10)
[2021-11-13] MEDS: Polyethylene Glycol 3350 17 GM PACKET PO SCH (08:13)
[2021-11-13] MEDS: METRONIDAZOLE TOPICAL SCH (08:17)
[2021-11-14] MEDS: Mometasone/Formoter 200/5 MDI INH SCH ×2 (08:31→20:04)
[2021-11-14] MEDS: Polyethylene Glycol 3350 17 GM PACKET PO SCH (08:35)
[2021-11-14] MEDS: METRONIDAZOLE TOPICAL SCH (08:37)
[2021-11-14] MEDS: BETAMETHASONE 0.05% TOPICAL PRN (20:58)
[2021-11-15 05:18] VITALS: BP 123/88
[2021-11-15] MEDS: Mometasone/Formoter 200/5 MDI INH SCH (08:03)
[2021-11-15] MEDS: Polyethylene Glycol 3350 17 GM PACKET PO SCH (09:38)
[2021-11-15] MEDS: METRONIDAZOLE TOPICAL SCH (10:03)
== END 2021-11-15 16:00 | disposition home or self-care (01) | DRG 100 ==
LOC: PMRU 12:48
PROVIDERS: ADMIT Physical Medicine & Rehabilitation; ATTEND Physical Medicine & Rehabilitation

== ENCOUNTER 2023-12-23 06:09 | Inpatient (IN) ==
[2023-12-23] MEDS ORDERED: Rocuronium 50 mg VIAL 10 mg/ml 5 ml VIAL (50 mg) ONE (06:13)
[2023-12-23] MEDS ORDERED: Succinylcholine 200 mg VIAL 20 mg/ml 10 ml VIAL (200 mg) ONE (06:13)
[2023-12-23] MEDS: Ondansetron 4 mg VIAL 2 MG/ML 2 ml VIAL IV ONE (06:36)
[2023-12-23 06:38] LABS: PCO2 Arterial 64 mmHg (35-45); PO2 Arterial 64 mmHg (80-100)
[2023-12-23 06:39] LABS: ABS Monocytes 0.1 10^3/uL (0.0-1.1); ABS Neutrophils 4.5 10^3/uL (1.5-7.6); ABS Nucleated RBC 0.02 10^3/ul; Eosinophil % 0.7 %; Hematocrit 52.8 % (38-53); Hemoglobin 17.2 g/dL (13.2-16.3); Mean Corpuscular Hemoglobin 29.5 pg (27-33); Mean Corpuscular Hgb Conc 32.5 g/dL (31-36); Mean Corpuscular Volume 90.7 fL (80-97); Mean Platelet Volume 7.7 fL (7.5-11.2); Nucleated Red Blood Cells % 0.3 %/100WBC (0.0-0.8); Platelet Count 150 10^3/uL (150-450); Red Blood Count 5.82 10^6/uL (4.06-5.63); Red Cell Distribution Width 13.6 % (12-17); White Blood Count 5.6 10^3/uL (3.6-10.2)
[2023-12-23 06:49] LABS: Activated Partial Thrombo Time 32.5 seconds (26.0-38.0); INR 1.03 (0.83-1.13)
[2023-12-23] MEDS: Piperacillin/Tazobac 3.375 BAG 3.375 GM/100 ML BAG IV ONE (07:27)
[2023-12-23] MEDS: Vancomycin 1,000 MG in NS 0.9% 250 ml 250 ML IVPB ONE (07:29)
[2023-12-23 07:30] LABS: Albumin 4.6 g/dL (3.2-5.2); Albumin/Globulin Ratio 1.6 (1-3); C Reactive Protein 16.19 mg/L (<8.01); Calcium 9.3 mg/dL (8.6-10.3); Creatinine, Serum 1.03 mg/dL (0.67-1.17); Globulin 2.9 g/dL (2-4); Potassium 5.5 mmol/L (3.5-5.0); Total Bilirubin 0.6 mg/dL (0.2-1.0); Total Protein 7.5 g/dL (6.4-8.9); eGFR CKD-EPI 78.1 (>60)
[2023-12-23 07:53] LABS: Urine Appearance Clear; Urine Bilirubin Negative (Negative); Urine Blood Negative (Negative); Urine Color Light-Yellow; Urine Glucose 4+ (>=1000 mg/dL) (Negative); Urine Ketones Negative (Negative); Urine Nitrite Negative (Negative); Urine Protein Negative (Negative); Urine Urobilinogen Negative (Negative)
[2023-12-23 07:59] LABS: High Sensitivity Troponin 1 Hr 19 pg/mL (<20)
[2023-12-23 08:21] LABS: Resp Rate 15
[2023-12-23 08:22] LABS: PCO2 Arterial 54 mmHg (35-45); PO2 Arterial 183 mmHg (80-100)
[2023-12-23] MEDS: Iohexol 350 (CONTRAST) 500 ML MDV IV ONE (09:24)
[2023-12-23] MEDS ORDERED: .Amiodarone 24HR ONLY IV Protocol Order Note IV ONE (10:07)
[2023-12-23] MEDS: Norepinephrine 4 MG/250mL D5W 4,000 MCG/250 ML BAG IV ONE (10:11)
[2023-12-23] MEDS: Norepinephrine 4 MG/250mL NS 4,000 MCG/250 ML BAG IV SCH (10:11)
[2023-12-23] MEDS: Norepinephrine 4 MG/250mL D5W 4,000 MCG/250 ML BAG IV SCH (10:13)
[2023-12-23] MEDS: Amiodarone 150 mg IVPREMIX 150 MG/100 ML BAG IV ONE (10:40)
[2023-12-23] MEDS ORDERED: Sulfur Hexaflouride MICROSPHR 25 MG VIAL ONE (10:47)
[2023-12-23] MEDS: Amiodarone 360 MG IVPREMIX 360 MG/200 ML BAG IV SCH (10:50)
[2023-12-23] MEDS: Digoxin IV 0.5 MG/2 ML AMP (0.25 MG/ML) IV SLOW PU ONE (12:46)
[2023-12-23] MEDS: levETIRAcetam IV 750 MG in NS 0.9% 100 ml BAG 100 ML IVPB SCH (14:28)
[2023-12-23] MEDS ORDERED: Amiodarone 360 MG IVPREMIX 360 MG/200 ML BAG IV SCH (16:20)
[2023-12-24 05:57] LABS: Hematocrit 41.3 % (38-53); Hemoglobin 13.7 g/dL (13.2-16.3); Mean Corpuscular Hemoglobin 29.9 pg (27-33); Mean Corpuscular Hgb Conc 33.1 g/dL (31-36); Mean Corpuscular Volume 90.2 fL (80-97); Mean Platelet Volume 8.1 fL (7.5-11.2); Platelet Count 142 10^3/uL (150-450); Red Blood Count 4.58 10^6/uL (4.06-5.63); Red Cell Distribution Width 13.3 % (12-17); White Blood Count 13.3 10^3/uL (3.6-10.2)
[2023-12-24 06:32] LABS: Calcium 8.5 mg/dL (8.6-10.3); Creatinine, Serum 1.05 mg/dL (0.67-1.17); Magnesium 1.8 mg/dL (1.9-2.7); Phosphorus 2.6 mg/dL (2.5-5.0); Potassium 4.5 mmol/L (3.5-5.0); eGFR CKD-EPI 76.4 (>60)
[2023-12-24 06:51] LABS: ABS Lymphocytes 0.8 10^3/uL (1.0-4.8); ABS Neutrophils 11.5 10^3/uL (1.5-7.6); ABS Nucleated RBC 0.02 10^3/ul; Lymphocyte % 6.4 %; Nucleated Red Blood Cells % 0.1 %/100WBC (0.0-0.8)
[2023-12-24] MEDS: Magnesium Sulfate 2 gm BAG 2 GM/50 ML BAG IVPB ONE (09:03)
[2023-12-24] MEDS ORDERED: Magnesium Hydroxide LIQ 30 ML UDC PO PRN (20:10)
[2023-12-24] MEDS ORDERED: Polyethylene Glycol 3350 17 GM PACKET PO PRN (20:10)
[2023-12-24] MEDS: Magnesium Hydroxide LIQ 30 ML UDC PO SCH (22:06)
[2023-12-25 06:13] LABS: ABS Eosinophils 0.1 10^3/uL (0.0-0.5); ABS Lymphocytes 0.8 10^3/uL (1.0-4.8); ABS Monocytes 0.6 10^3/uL (0.0-1.1); ABS Neutrophils 7.8 10^3/uL (1.5-7.6); Eosinophil % 0.6 %; Hematocrit 40.4 % (38-53); Hemoglobin 13.3 g/dL (13.2-16.3); Lymphocyte % 8.4 %; Mean Corpuscular Volume 90.8 fL (80-97); Mean Platelet Volume 8.2 fL (7.5-11.2); Platelet Count 133 10^3/uL (150-450); Red Blood Count 4.45 10^6/uL (4.06-5.63); Red Cell Distribution Width 13.7 % (12-17); White Blood Count 9.2 10^3/uL (3.6-10.2)
[2023-12-25 06:24] LABS: Calcium 8.7 mg/dL (8.6-10.3); Creatinine, Serum 0.84 mg/dL (0.67-1.17); Magnesium 2.3 mg/dL (1.9-2.7); eGFR CKD-EPI 93.8 (>60)
[2023-12-25] MEDS ORDERED: Albuterol HFA INHALER 8 gm MDI INH PRN (14:25)
[2023-12-25] MEDS: Heparin 2 UNITS/ML 1000 mls 1,000 ML IV ONE (15:13)
[2023-12-25] MEDS: fentaNYL 100 mcg/2 ml 50 MCG/ML VIAL ONE ×2 (15:13→15:14)
[2023-12-25] MEDS: Metoprolol Tartrate 5 mg VIAL 5 ml VIAL (1 mg/ml) IV ONE (18:10)
[2023-12-26 06:26] LABS: ABS Eosinophils 0.1 10^3/uL (0.0-0.5); ABS Monocytes 0.7 10^3/uL (0.0-1.1); ABS Neutrophils 7.1 10^3/uL (1.5-7.6); ABS Nucleated RBC 0.01 10^3/ul; Eosinophil % 1.2 %; Hematocrit 39.8 % (38-53); Hemoglobin 13.2 g/dL (13.2-16.3); Lymphocyte % 10.9 %; Mean Corpuscular Hemoglobin 29.9 pg (27-33); Mean Corpuscular Hgb Conc 33.1 g/dL (31-36); Mean Corpuscular Volume 90.5 fL (80-97); Nucleated Red Blood Cells % 0.1 %/100WBC (0.0-0.8); Platelet Count 137 10^3/uL (150-450); Red Cell Distribution Width 13.2 % (12-17); White Blood Count 8.9 10^3/uL (3.6-10.2)
[2023-12-26 06:44] LABS: Calcium 9.1 mg/dL (8.6-10.3); Creatinine, Serum 0.84 mg/dL (0.67-1.17); Magnesium 2.1 mg/dL (1.9-2.7); Phosphorus 3.1 mg/dL (2.5-5.0); Potassium 4.1 mmol/L (3.5-5.0); eGFR CKD-EPI 93.8 (>60)
[2023-12-26] MEDS: Cholecalciferol (VIT D3) 1,000 unit TAB PO SCH (08:42)
[2023-12-26] MEDS: Aspirin EC 81 mg TAB.EC (enteric coated) PO SCH (12:08)
[2023-12-31] MEDS: Dextran 70/Hypromellose Tears Eye Drops 15 ml BTL (for Artificials Tears) BOTH EYES PRN (10:21)
[2023-12-31 10:45] LABS: Rapid COVID-19 Molecular Undetected (Undetected)
[2024-01-04 06:09] LABS: ABS Eosinophils 0.1 10^3/uL (0.0-0.5); ABS Lymphocytes 1.2 10^3/uL (1.0-4.8); ABS Monocytes 0.5 10^3/uL (0.0-1.1); ABS Neutrophils 5.5 10^3/uL (1.5-7.6); ABS Nucleated RBC 0.01 10^3/ul; Eosinophil % 1.6 %; Hemoglobin 13.7 g/dL (13.2-16.3); Mean Corpuscular Hemoglobin 29.6 pg (27-33); Mean Corpuscular Hgb Conc 32.7 g/dL (31-36); Mean Corpuscular Volume 90.5 fL (80-97); Mean Platelet Volume 7.3 fL (7.5-11.2); Nucleated Red Blood Cells % 0.1 %/100WBC (0.0-0.8); Platelet Count 235 10^3/uL (150-450); Red Blood Count 4.65 10^6/uL (4.06-5.63); Red Cell Distribution Width 13.3 % (12-17); White Blood Count 7.3 10^3/uL (3.6-10.2)
[2024-01-04 06:48] LABS: Calcium 8.8 mg/dL (8.6-10.3); Creatinine, Serum 0.87 mg/dL (0.67-1.17); Magnesium 2.1 mg/dL (1.9-2.7); Potassium 4.5 mmol/L (3.5-5.0); eGFR CKD-EPI 92.8 (>60)
[2024-01-04] MEDS: Senna TAB 8.6 mg TAB PO PRN (22:02)
[2024-01-05 05:50] VITALS: BP 145/87
[2024-01-05 08:12] LABS: Rapid COVID-19 Molecular Undetected (Undetected)
== END 2024-01-05 10:15 | DRG 189 ==
LOC: ED 06:09 → EDHOLD 07:53 → SUATTDRO 07:53 → ICU 08:33 → MEDTELE 12-24 09:29 → MED 01-04 11:14
PROVIDERS: ADMIT Internal Medicine Critical Care Medicine; ATTEND Student in an Organized Health Care Education/Training Program